=== PATIENT | female | born 1935 | race Caucasian/White ===

== ENCOUNTER → 2016-10-02 | Outpatient (CLI) | payer OTHER ==
[~2016-10-02] MED LIST: ADVIN25/60 INH; AMIO200T4 PO; ANT25 PO; APIX1TAB3 PO; ATOR10TA88 PO; CALC500C70 PO; CMBIN INH; FERRTAB18 PO; FSMD/70 PO; IPRA1AER2 INH; MAGN400T6 PO; PROM12.57 PO; WARF4TAB44 PO
[2016-10-02 13:21] LABS: URINE APPEARANCE CLEAR (CLEAR); URINE BILIRUBIN NEG (NEG); URINE COLOR YELLOW; URINE NITRITE NEG (NEG); URINE SPECIFIC GRAVITY 1.008 (1.000-1.030); UROBILINOGEN NEG (NEG)
[2016-10-02 13:30] LABS: MANUAL MICROSCOPIC REQUIRED? NO; REVIEW REQ? NO
[2016-10-02 13:32] LABS: HEMATOCRIT 29.9 % (37-47); MEAN CELL VOLUME 93.4 fL (80-100); MEAN CORPUSCULAR HGB CONC 32.1 g/dl (32-36); MEAN PLATELET VOLUME 10.2 fL (7.4-10.4); PLATELET COUNT 196 K/uL (130-400); WHITE BLOOD COUNT 6.41 K/uL (4.8-10.8)
[2016-10-02 13:48] LABS: BLOOD UREA NITROGEN 39 mg/dl (7-18); CALCIUM 8.5 mg/dl (8.5-10.1); CARBON DIOXIDE 26 mmol/L (21-32); CHLORIDE 108 mmol/L (98-107); GLUCOSE 92 mg/dl (70-99); POTASSIUM 4.5 mmol/L (3.5-5.1); SODIUM 143 mmol/L (136-145)
[2016-10-02 13:52] LABS: URINE PROTIEN/CREAT RATIO 0.2 (0-0.2); URINE TOTAL PROTEIN 16.1 mg/dl (0-11.9)
[2016-10-02 13:54] LABS: FERRITIN 33.6 ng/ml (8.0-388.0); PHOSPHORUS 3.4 mg/dl (2.5-4.9); TOTAL IRON BINDING CAPACITY 314 mcg/dl (250-450)
== END | disposition home or self-care (01) ==
LOC: C.LABMFLN 07:58
PROVIDERS: ATTEND Internal Medicine Nephrology
DX: D64.9 Anemia, unspecified (principal); N18.3 Chronic kidney disease, stage 3 (moderate)

== ENCOUNTER 2016-12-04 13:03 | Emergency (ER) | payer OTHER ==
[~2016-12-04] VITALS: Ht 160 cm; Wt 61.0 kg
[~2016-12-04 13:03] MED LIST changes: -ANT25 PO; -APIX1TAB3 PO; +ATOR10TA82 PO; -ATOR10TA88 PO; -FERRTAB18 PO; -IPRA1AER2 INH; -PROM12.57 PO
[2016-12-04 13:11] VITALS: TEMP 36.3; Ht 160 cm; Wt 61.0 kg
[2016-12-04] MEDS ORDERED: MECLIZINE HCL 25 MG TAB PO STA (13:28)
[2016-12-04] MEDS ORDERED: ONDANSETRON INJ 2 MG/ML 2 ML VIAL IV STA (13:28)
[2016-12-04] MEDS ORDERED: SODIUM CHLORIDE 0.9% 1000ML 500 ML IV STA (13:28)
[2016-12-04] MEDS ORDERED: SODIUM CHLORIDE 0.9% 1000ML 1,000 ML IV STA (13:28)
--- NOTE | 2016-12-04 13:35 | EMERGENCY ROOM VISIT NOTE ---
History Report prepared by Anders: Kym Jo Under the Supervision of: Dr. Pardeep Baron M.D. First contact with patient: 13:20 Chief Complaint: DIZZY Stated Complaint: DIZZY,VOMITING,A-FIB, POSSIBLE VERTIGO Nursing Triage Summary: dizziness and vomitting since 1030 am today gets worse with movement History of Present Illness The patient is an 81 year old female who presents to the Emergency Room with complaints of persistent dizziness that began this morning around 1030 (3 hours ago). The patient states that she woke up feeling fine this morning and then when she was getting ready to get in the car she became dizzy. She describes her dizziness as a room spinning sensation. The patient additionally associates nausea and vomiting with her symptoms today. The patient denies any history of vertigo. She notes a history of atrial fibrillation. The patient states that she has been feeling fine over the past few days. She denies any history of a stroke. The patient notes that her blood pressure is elevated today. She denies any chest pain, shortness of breath, cough, fever, congestion , ear pain, urinary symptoms, or weakness. Her symptoms are worse with movement and better when she is still. Source of History: patient Onset: 1030 this morning Position: other (global) Quality: other (dizziness) Timing: other (persistent) Associated Symptoms: + nausea, + vomiting, No SOB, No chest pain, No cough, No fevers, No urinary symptoms, No weakness Review of Systems See HPI for pertinent positives & negatives. A total of 10 systems reviewed and were otherwise negative. Past Medical & Surgical Medical Problems: (1) Atrial fibrillation (2) Bronchitis (3) Heart disease (4) Hypertension (5) Kidney disease (6) Pneumonia Family History Cancer Diabetes mellitus FH: heart disease Hypertension Social History Smokeless Tobacco Use: No Alcohol Use: none Marital Status: Housing Status: lives with family Occupation Status: employed Current/Historical Medications Scheduled Amiodarone Hcl (Cordarone), 200 MG PO DAILY Atorvastatin (Lipitor), 10 MG PO DAILY Calcium/Vitamin D (Os-Gareth 500 Plus D), 1 TAB PO BID Fluticasone Prop/Salmeterol (Advair Diskus 250/50 60 Dose), 1 PUFF INH BID Ipratropium-Albuterol (Combivent Respimat), 1 PUFFS INH QID Scheduled PRN Meclizine HCl (Meclizine HCl), 12.5 MG PO Q6 PRN for Dizziness or Vertigo Promethazine (Phenergan ), 1 TABS PO Q6 PRN for Nausea Allergies Coded Allergies: Penicillins (Verified Allergy, Intermediate, HIVES, 12/04/16) Lisinopril (Unverified Allergy, Unknown, ., 12/04/16) Physical Exam Vital Signs Date Time Temp Pulse Resp B/P Pulse Ox O2 Delivery O2 Flow Rate FiO2 12/04/16 16:32 64 18 164/80 95 12/04/16 14:32 68 196/81 72 188/86 72 185/85 12/04/16 13:54 68 12/04/16 13:11 36.3 68 18 226/79 98 Room Air Physical Exam GENERAL: Patient is in no acute distress. HEENT: No acute trauma, normocephalic atraumatic, mucous membranes moist, no nasal congestion, no scleral icterus, pupils are equal and reactive to light, no nystagmus. NECK: No stridor, no adenopathy, no meningismus, trachea is midline. LUNGS: Clear to auscultation bilaterally, no wheeze, no rhonchi, breath sounds equal. HEART: 2/6 systolic murmur with a regular rate and rhythm ABDOMEN: Soft, nontender, bowel sounds positive, no hernias, no peritonitis. EXTREMITIES: No cyanosis or edema, full range of motion of all the joints without pain or difficulty, no signs for acute trauma. NEUROLOGIC: Oriented x 3, no acute motor or sensory deficits, no focal weakness , no speech slur, pronator drift or cerebellar dysfunction. SKIN: No rash, no jaundice, no diaphoresis. Medical Decision & Procedures ER Provider Diagnostic Interpretation: Orthostatic vital signs are negative. CT results as stated below per my review and radiologist interpretation: HEAD CT NONCONTRAST CT DOSE: 537.48 mGy.cm HISTORY: EVALUATE ALTERED MENTAL STATUS/WEAKNESS TECHNIQUE: Multiaxial CT images of the head were performed without the use of intravenous contrast. Automated exposure control was utilized for this study. Comparison: None. Findings: The paranasal sinuses and mastoid air cells are clear. The calvarium and skull base are intact. Mild atrophic changes within the brain. 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 There is no hematoma, midline shift, or acute infarct. Prominence of the retrocerebellar extra-axial space. This measures up to 3 cm in thickness. This demonstrates CSF density and could represent an arachnoid cyst versus a sade cisterna magna. Impression: 1. No acute intracranial abnormality. 2. Prominence of the retrocerebellar extra-axial space measuring up to 3 cm in thickness. This may represent a sade cisterna magna versus an arachnoid cyst. Electronically signed by: Felipe Felder M.D. 12/04/2016 2:10 PM Dictated Date/Time: 12/04/2016 2:06 PM Laboratory Results 12/04/16 13:45 Red Blood Count 3.69, Mean Corpuscular Volume 90.5, Mean Corpuscular Hemoglobin 28.2, Mean Corpuscular Hemoglobin Concent 31.1, Mean Platelet Volume 9.4, Neutrophils (%) (Auto) 86.4, Lymphocytes (%) (Auto) 7.2, Monocytes (%) (Auto) 5.4, Eosinophils (%) (Auto) 0.6, Basophils (%) (Auto) 0.3, Neutrophils # (Auto) 6.81, Lymphocytes # (Auto) 0.57, Monocytes # (Auto) 0.43, Eosinophils # (Auto) 0.05, Basophils # (Auto) 0.02 12/04/16 13:45 Test 12/04/16 13:45 12/04/16 14:35 White Blood Count 7.89 K/uL (4.8-10.8) Red Blood Count 3.69 M/uL (4.2-5.4) Hemoglobin 10.4 g/dL (12.0-16.0) Hematocrit 33.4 % (37-47) Mean Corpuscular Volume 90.5 fL (80-100) Mean Corpuscular Hemoglobin 28.2 pg (25-34) Mean Corpuscular Hemoglobin Concent 31.1 g/dl (32-36) Platelet Count 241 K/uL (130-400) Mean Platelet Volume 9.4 fL (7.4-10.4) Neutrophils (%) (Auto) 86.4 % Lymphocytes (%) (Auto) 7.2 % Monocytes (%) (Auto) 5.4 % Eosinophils (%) (Auto) 0.6 % Basophils (%) (Auto) 0.3 % Neutrophils # (Auto) 6.81 K/uL (1.4-6.5) Lymphocytes # (Auto) 0.57 K/uL (1.2-3.4) Monocytes # (Auto) 0.43 K/uL (0.11-0.59) Eosinophils # (Auto) 0.05 K/uL (0-0.5) Basophils # (Auto) 0.02 K/uL (0-0.2) RDW Standard Deviation 54.2 fL (36.4-46.3) RDW Coefficient of Variation 16.2 % (11.5-14.5) Immature Granulocyte % (Auto) 0.1 % Immature Granulocyte # (Auto) 0.01 K/uL (0.00-0.02) Anion Gap 8.0 mmol/L (3-11) Est Creatinine Clear Calc Drug Dose 25.2 ml/min Estimated GFR () 40.2 Estimated GFR (Non- 34.7 BUN/Creatinine Ratio 24.5 (10-20) Calcium Level 9.2 mg/dl (8.5-10.1) Magnesium Level 2.3 mg/dl (1.8-2.4) Total Bilirubin 0.4 mg/dl (0.2-1) Aspartate Amino Transf (AST/SGOT) 23 U/L (15-37) Alanine Aminotransferase (ALT/SGPT) 31 U/L (12-78) Alkaline Phosphatase 96 U/L (45-117) Troponin I < 0.015 ng/ml (0-0.045) Total Protein 7.2 gm/dl (6.4-8.2) Albumin 3.6 gm/dl (3.4-5.0) Globulin 3.6 gm/dl (2.5-4.0) Albumin/Globulin Ratio 1.0 (0.9-2) Thyroid Stimulating Hormone (TSH) 3.500 uIu/ml (0.300-4.500) Urine Color YELLOW Urine Appearance CLEAR (CLEAR) Urine pH 8.0 (4.5-7.5) Urine Specific [place] 1.012 (1.000-1.030) Urine Protein 1+ (NEG) Urine Glucose (UA) NEG (NEG) Urine Ketones NEG (NEG) Urine Occult Blood 1+ (NEG) Urine Nitrite NEG (NEG) Urine Bilirubin NEG (NEG) Urine Urobilinogen NEG (NEG) Urine Leukocyte Esterase NEG (NEG) Urine WBC (Auto) 1-5 /hpf (0-5) Urine RBC (Auto) 5-10 /hpf (0-4) Urine Hyaline Casts (Auto) 1-5 /lpf (0-5) Urine Epithelial Cells (Auto) >30 /lpf (0-5) Urine Bacteria (Auto) NEG (NEG) Urine Renal Epithelial Cells /lpf (0-5) Laboratory results reviewed by me. Medications Administered Medications (Trade) Dose Ordered Sig/Shai Route Start Time Stop Time Status Last Admin Dose Admin Sodium Chloride (Nss 1000ml) 500 ml @ 999 mls/hr Q31M STAT IV 12/04/16 13:28 12/04/16 13:58 DC 12/04/16 13:28 999 MLS/HR Ondansetron HCl (Zofran Inj) 4 mg NOW STAT IV 12/04/16 13:28 12/04/16 13:31 DC 12/04/16 13:53 4 MG Meclizine HCl (Antivert Tab) 25 mg NOW STAT PO 12/04/16 13:28 12/04/16 13:31 DC 12/04/16 13:53 25 MG ECG Indication: other (dizziness) Rate (beats per minute): 69 Rhythm: sinus rhythm Findings: 1st degree AV block, no acute ischemic change, no ectopy, other (LVH is present) ED Course 1320: The patient was evaluated in room C8. A complete history and physical exam was performed. 1328: Ordered Antivert Tab 25 mg PO, Sodium Chloride 1000 ml @ 125 mls/hr IV, Zofran Inj 4 mg IV, Sodium Chloride 500 ml @ 999 mls/hr IV. 1522: I reevaluated the patient and she is feeling better. She is going to have an ambulation trial. 1556: I reevaluated the patient and her ambulation trial went well. I discussed all the exam findings with her and I discussed the treatment plan. She verbalized complete understanding and agreement. She is ready to go home. Medical Decision The patient is an 81 year old female who presents to the ED with complaints of dizziness. Differential diagnoses considered include vertigo, dehydration, UTI , electrolyte imbalance, anemia, dysrhythmia, stroke. There is no leukocytosis. A mild anemia was present but this is baseline looking back at previous testing. No significant electrolyte abnormality, some dehydration was suggested by renal panel testing. There was no hepatitis. The patient appeared to be in a euthyroid state. EKG showed a sinus rhythm with a first-degree AV block. There was no evidence for dysrhythmia or acute ischemia. Cardiac enzyme testing 1 is not suggestive of acute cardiac injury. Brain CT shows some potential older small strokes, no acute stroke, no acute bleed or mass effect. Orthostatic vital signs were negative. Urinalysis does not show infection. The patient received IV saline, IV Zofran and oral meclizine. She feels markedly improved. On her exam, she did not have any focal neurologic findings. The patient likely does have vertigo. As she has improved with medications, I believe she can be discharged. She was encouraged to return if worsening or not continuing to improve. She will see her doctor later this week. Impression Primary Impression: Dizziness Scribe Attestation The scribe's documentation has been prepared under my direction and personally reviewed by me in its entirety. I confirm that the note above accurately reflects all work, treatment, procedures, and medical decision making performed by me. Departure Information Dispostion Home / Self-Care Prescriptions Promethazine (Phenergan ) 12.5 Mg Tab 1 TABS PO Q6 Y for Nausea, #10 TAB Prov: Pardeep Baron M.D. 12/04/16 Meclizine HCl (Meclizine HCl) 25 Mg Tab 12.5 MG PO Q6 Y for Dizziness or Vertigo, #10 TAB Prov: Pardeep Baron M.D. 12/04/16 Referrals Denisse Calle (PCP) Forms HOME CARE DOCUMENTATION FORM, IMPORTANT VISIT INFORMATION Patient Instructions My [facility] Additional Instructions see your doctor this week for a recheck use phenergan 1 tab every 6 hours for nausea use meclizine 1/2 tab every 6 hours for dizziness rest stay well hydrated return if worsening as we discussed
[2016-12-04] MEDS ORDERED: IPRA1AER2 INH (13:46)
[2016-12-04 14:12] LABS: BASO % 0.3 %; BASO ABS # 0.02 K/uL (0-0.2); COMPLETE YES; EOS % 0.6 %; HEMATOCRIT 33.4 % (37-47); IG% 0.1 %; LYMPH % 7.2 %; LYMPH ABS # 0.57 K/uL (1.2-3.4); MEAN CELL VOLUME 90.5 fL (80-100); MEAN CORPUSCULAR HEMOGLOBIN 28.2 pg (25-34); MEAN CORPUSCULAR HGB CONC 31.1 g/dl (32-36); MEAN PLATELET VOLUME 9.4 fL (7.4-10.4); MONO % 5.4 %; NEUT % 86.4 %; PLATELET COUNT 241 K/uL (130-400); RED BLOOD COUNT 3.69 M/uL (4.2-5.4); WHITE BLOOD COUNT 7.89 K/uL (4.8-10.8)
--- NOTE | 2016-12-04 14:12 | DIAGNOSTIC IMAGING REPORT ---
HEAD CT NONCONTRAST CT DOSE: 537.48 mGy.cm HISTORY: EVALUATE ALTERED MENTAL STATUS/WEAKNESS TECHNIQUE: Multiaxial CT images of the head were performed without the use of intravenous contrast. Automated exposure control was utilized for this study. Comparison: None. Findings: The paranasal sinuses and mastoid air cells are clear. The calvarium and skull base are intact. Mild atrophic changes within the brain. 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 There is no hematoma, midline shift, or acute infarct. Prominence of the retrocerebellar extra-axial space. This measures up to 3 cm in thickness. This demonstrates CSF density and could represent an arachnoid cyst versus a sade cisterna magna. Impression: 1. No acute intracranial abnormality. 2. Prominence of the retrocerebellar extra-axial space measuring up to 3 cm in thickness. This may represent a sade cisterna magna versus an arachnoid cyst. Electronically signed by: Felipe Felder M.D. 12/04/2016 2:10 PM Dictated Date/Time: 12/04/2016 2:06 PM
[2016-12-04 14:53] LABS: URINE APPEARANCE CLEAR (CLEAR); URINE BILIRUBIN NEG (NEG); URINE COLOR YELLOW; URINE EPITHELIAL CELL AUTO >30 /lpf (0-5); URINE NITRITE NEG (NEG); URINE SPECIFIC GRAVITY 1.012 (1.000-1.030); UROBILINOGEN NEG (NEG); ZZUR CULT IF INDIC CLEAN CATCH NO
[2016-12-04 14:54] LABS: ALKALINE PHOSPHATASE 96 U/L (45-117); ALT/SGPT 31 U/L (12-78); AST/SGOT 23 U/L (15-37); BLOOD UREA NITROGEN 34 mg/dl (7-18); BUN/CREATININE RATIO 24.5 (10-20); CALCIUM 9.2 mg/dl (8.5-10.1); CARBON DIOXIDE 28 mmol/L (21-32); CHLORIDE 106 mmol/L (98-107); GLUCOSE 134 mg/dl (70-99); MAGNESIUM 2.3 mg/dl (1.8-2.4); POTASSIUM 4.1 mmol/L (3.5-5.1); SODIUM 142 mmol/L (136-145)
[2016-12-04 15:10] LABS: MANUAL MICROSCOPIC REQUIRED? NO; REVIEW REQ? YES; SULFASALICYLIC ACID POS (NEG)
[2016-12-04] MEDS ORDERED: ANT25 PO (16:02)
[2016-12-04] MEDS ORDERED: PROM12.57 PO (16:02)
[2016-12-04 16:32] VITALS: BP 164/80; PULSE 64; O2SAT 95
[2016-12-31] MEDS ORDERED: AMIO200T4 PO (15:14)
[2016-12-31] MEDS ORDERED: APIX1TAB3 PO (15:14)
[2016-12-31] MEDS ORDERED: FERRTAB18 PO (15:14)
[2016-12-31] MEDS ORDERED: IPRA1AER2 INH (15:15)
== END 2016-12-04 16:35 | disposition home or self-care (01) ==
LOC: C.EDB 13:04 → C.EDC 16:35
DX: R42 Dizziness and giddiness (principal); I48.91 Unspecified atrial fibrillation; I51.9 Heart disease, unspecified; I10 Essential (primary) hypertension; N28.9 Disorder of kidney and ureter, unspecified; Z87.01 Personal history of pneumonia (recurrent); Z80.9 Family history of malignant neoplasm, unspecified; Z83.3 Family history of diabetes mellitus; Z82.49 Family history of ischemic heart disease and other diseases of the circulatory system; Z79.899 Other long term (current) drug therapy

== ENCOUNTER → 2017-01-07 | Day surgery (SDC) | payer OTHER ==
[2016-12-31 15:16] VITALS: Ht 161.3 cm; Wt 61.4 kg
[~2017-01-07] VITALS: Ht 161.3 cm; Wt 61.4 kg
[~2017-01-07] MED LIST changes: +APIX1TAB3 PO; -CMBIN INH; +FERRTAB18 PO; -FSMD/70 PO; +IPRA1AER2 INH; +LIDOCAINE HCL 2% 2 ML VIAL (20MG/ML) ONE; -MAGN400T6 PO; +PROPOFOL IV EMULSION 10 MG/ML 20 ML VIAL IV ONE; -WARF4TAB44 PO
--- NOTE | 2017-01-07 13:02 | Endo History and Physical ---
History & Physical Date of Service: January 07, 2017. Chief Complaint: Iron Deficiency anemia Referring Physician: Denisse Calle History of Present Illness For EGD and colonoscopy Past Surgical History Hx Cardiac Surgery: No Hx Internal Defibrillator: No Hx Pacemaker: No Hx Abdominal Surgery: No Hx of Implantable Prosthesis: No Hx Post-Op Nausea and Vomiting: No Hx Cancer Surgery: No Hx Thoracic Surgery: No Hx Orthopedic: Yes (LT/RT BUNIONECTOMY, LT/RT SHOULDER SURGERY) Hx Urinary Tract Surgery: No Family History Colon CA Social History Smoking Status: Never Smoker Hx Substance Use: No Hx Alcohol Use: No Allergies Coded Allergies: Penicillins (Verified Allergy, Intermediate, HIVES, 12/31/16) Lisinopril (Unverified Allergy, Unknown, FACIAL SWELLING AND RT UPPER THIGH PAIN, 12/31/16) Current Medications Reported Home Medications Medications Dose Route/Sig Max Daily Dose Days Date Category Combivent Respimat (Ipratropium-Albuterol) 1 Aer Aer 1 Puffs INH QID 12/31/16 Reported Cordarone (Amiodarone Hcl) 200 Mg Tab 200 Mg PO LUNCH 12/31/16 Reported Vitron-C (Iron-Vitamin C) 1 Tab Tab 1 Tab PO LUNCH 12/31/16 Reported Eliquis (Apixaban) 5 Mg Tab 10 Mg PO BID 12/31/16 Reported Os-Gareth 500 Plus D (Calcium/Vitamin D) Tab 1 Tab PO BID 10/16/12 Reported Lipitor (Atorvastatin Calcium) 10 Mg Tab 10 Mg PO QPM 10/16/12 Reported Advair Diskus 250/50 60 Dose (Fluticasone Prop/Salmeterol) 1 Ea Aerp 1 Puff INH BID 10/16/12 Reported Vital Signs Weight (Kilograms): 61.36 Height (Feet): 5 Height (Inches): 3.5 Physical Exam General Appearance: + thin Respiratory/Chest: Respiratory effort: no dyspnea Cardiovascular: Heart Auscultation: RRR Abdomen: Inspection & Palpation: soft (Anemia for EGD and colonoscopy)
--- NOTE | 2017-01-07 13:35 | Discharge Instructions ---
Endoscopy Patient Instructions Date / Procedure(s) Performed January 07, 2017. Colonoscopy, EGD Allergy Information Coded Allergies: Penicillins (Verified Allergy, Intermediate, HIVES, 12/31/16) Lisinopril (Unverified Allergy, Unknown, FACIAL SWELLING AND RT UPPER THIGH PAIN, 12/31/16) Discharge Date / Findings January 07, 2017. Normal EGD, Ascending colon mass, sigmoid polyp Medication Instructions Stopped Medication(s): Eliquis Restart Stopped Medication(s): resume meds Reported Home Medications Medications Dose Route/Sig Max Daily Dose Days Date Category Combivent Respimat (Ipratropium-Albuterol) 1 Aer Aer 1 Puffs INH QID 12/31/16 Reported Cordarone (Amiodarone Hcl) 200 Mg Tab 200 Mg PO LUNCH 12/31/16 Reported Vitron-C (Iron-Vitamin C) 1 Tab Tab 1 Tab PO LUNCH 12/31/16 Reported Eliquis (Apixaban) 5 Mg Tab 10 Mg PO BID 12/31/16 Reported Os-Gareth 500 Plus D (Calcium/Vitamin D) Tab 1 Tab PO BID 10/16/12 Reported Lipitor (Atorvastatin Calcium) 10 Mg Tab 10 Mg PO QPM 10/16/12 Reported Advair Diskus 250/50 60 Dose (Fluticasone Prop/Salmeterol) 1 Ea Aerp 1 Puff INH BID 10/16/12 Reported Provider Instructions Activity Restrictions - No exercising or heavy lifting for 24 hours. - Do not drink alcohol the day of the procedure. - Do not drive a car or operate machinery until the day after the procedure. - Do not make any important decisions or sign important papers in 24 hours after the procedure. Following Day: - Return to full activity which may include returning to work/school. Diet Start your diet with liquids and light foods (jello, soup, juice, toast). Then eat your usual diet if not nauseated. Treatment For Common After Affects For mild abdominal pain, bloating, or excessive gas: - Rest - Eat lightly - Lie on right side Follow-Up Information Follow-up with Denisse Calle as scheduled Anesthesia Information What You Should Know You have had a procedure that required some medicine to reduce anxiety and discomfort. This treatment is called moderate sedation. After receiving the treatment, you may be sleepy, but you will be able to breathe on your own. The effects of the treatment may last for several hours. Follow these instructions along with Activity/Diet recommendations noted above: * Do NOT do anything where dizziness or clumsiness would be dangerous. * Rest quietly at home today, then you can be up and about tomorrow. * Have a responsible person stay with you the rest of today. * You may have had an I.V. today. If so, you may take the dressing off later today. Recommendations Call your doctor if: * Trouble breathing * Continuous vomiting for more than 24 hours * Temperature above 101 degrees * Severe abdominal pain or bloating * Pain not relieved by pain medicine ordered * There is increased drainage or redness from any incision * A large amount of rectal bleeding greater than 2-3 tablespoons. (If you had a polyp/s removed or have hemorrhoids, a small amount of blood - from the rectum is to be expected.) * You have any unanswered questions or concerns. IN THE EVENT OF A SERIOUS EMERGENCY, GO TO THE NEAREST EMERGENCY ROOM Your discharge instructions were prepared by provider Matthew Vogel. Patient Instructions Signature Page Sofiya Mercado Patient (or Guardian) Signature/Date: I have read and understand the instructions given to me by my caregivers. Caregiver/RN/Doctor Signature/Date: The above-named patient and/or guardian has received patient instructions on this date. + Original Patient Signature Page (only) stays with chart. Please make copy for patient.
--- NOTE | 2017-01-07 13:38 | GI REPORT ---
Procedure Date: 01/07/2017 1:07 PM Procedure: Upper GI endoscopy Indications: Iron deficiency anemia Medicines: Propofol total dose 160 mg IV, Lidocaine 40 mg IV Complications: No immediate complications. Estimated Blood Loss: Estimated blood loss was minimal. Procedure: Pre-Anesthesia Assessment: - Prior to the procedure, a History and Physical was performed, and patient medications, allergies and sensitivities were reviewed. The patient's tolerance of previous anesthesia was reviewed. - The risks and benefits of the procedure and the sedation options and risks were discussed with the patient. All questions were answered and informed consent was obtained. After obtaining informed consent, the endoscope was passed under direct vision. Throughout the procedure, the patient's blood pressure, pulse, and oxygen saturations were monitored continuously. The scope was introduced through the mouth, and advanced to the second part of duodenum. The upper GI endoscopy was accomplished without difficulty. The patient tolerated the procedure well. Findings: The examined esophagus was normal. The entire examined stomach was normal. The 2nd part of the duodenum was normal. Biopsies were taken with a cold forceps for histology. Estimated blood loss was minimal. Impression: - Normal esophagus. - Normal stomach. - Normal 2nd part of the duodenum. Biopsied. Recommendation: - Discharge patient to home (ambulatory). - Continue present medications. - Await pathology results. - Return to primary care physician PRN. Matthew Vogel M.D. Matthew Vogel MD 01/07/2017 1:38:41 PM This report has been signed electronically. Note Initiated On: 01/07/2017 1:07 PM I attest to the content of the Intraoperative Record and orders documented therein, exceptions below
--- NOTE | 2017-01-07 13:41 | GI REPORT ---
Procedure Date: 01/07/2017 1:12 PM Procedure: Colonoscopy Indications: Iron deficiency anemia Medicines: Propofol total dose 160 mg IV, Lidocaine 40 mg IV Complications: No immediate complications. Estimated Blood Loss: Estimated blood loss was minimal. Procedure: Pre-Anesthesia Assessment: - Prior to the procedure, a History and Physical was performed, and patient medications, allergies and sensitivities were reviewed. The patient's tolerance of previous anesthesia was reviewed. - The risks and benefits of the procedure and the sedation options and risks were discussed with the patient. All questions were answered and informed consent was obtained. After I obtained informed consent, the scope was passed under direct vision. Throughout the procedure, the patient's blood pressure, pulse, and oxygen saturations were monitored continuously. The scope was introduced through the anus and advanced to the cecum, identified by appendiceal orifice and ileocecal valve. The patient tolerated the procedure well. The colonoscopy was somewhat difficult due to significant looping. Successful completion of the procedure was aided by applying abdominal pressure. The quality of the bowel preparation was excellent. Findings: A fungating non-obstructing large mass was found in the proximal ascending colon. The mass was partially circumferential (involving one-half of the lumen circumference). No bleeding was present. Mucosa was biopsied with a cold forceps for histology. Estimated blood loss was minimal. A 5 mm polyp was found in the sigmoid colon. The polyp was sessile. The polyp was removed with a hot snare. Resection and retrieval were complete. Estimated blood loss: none. 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 Biopsied. - One 5 mm polyp in the sigmoid colon, removed with a hot snare. Resected and retrieved. Recommendation: - Discharge patient to home (ambulatory). - Continue present medications. - Await pathology results. - Refer to a colo-rectal surgeon at appointment to be scheduled. Matthew Vogel M.D. Matthew Vogel MD 01/07/2017 1:42:11 PM This report has been signed electronically. Note Initiated On: 01/07/2017 1:12 PM I attest to the content of the Intraoperative Record and orders documented therein, exceptions below
--- NOTE | 2017-01-07 14:06 | Anesthesiology Progress Note ---
Anesthesia Post Op Note Date & Time January 07, 2017 at 14:06 Vital Signs Pain Intensity: 0 Vital Signs Past 12 Hours Date Time Temp Pulse Resp B/P Pulse Ox O2 Delivery O2 Flow Rate FiO2 01/07/17 13:59 65 20 163/64 96 Room Air 01/07/17 13:40 65 12 117/66 96 Room Air 01/07/17 12:59 36.5 69 20 177/74 94 Room Air Notes Mental Status: alert / awake / arousable, participated in evaluation Pt Amnestic to Procedure: Yes Nausea / Vomiting: adequately controlled Pain: adequately controlled Airway Patency, RR, SpO2: stable & adequate BP & HR: stable & adequate Hydration State: stable & adequate Anesthetic Complications: no major complications apparent
[2017-01-07 14:11] VITALS: BP 175/64; PULSE 66; O2SAT 95
== END | disposition home or self-care (01) ==
LOC: C.GI 12:18
PROVIDERS: ATTEND Internal Medicine Gastroenterology
DX: D50.9 Iron deficiency anemia, unspecified (principal); D12.2 Benign neoplasm of ascending colon; D12.5 Benign neoplasm of sigmoid colon; Z88.0 Allergy status to penicillin; J44.9 Chronic obstructive pulmonary disease, unspecified; I48.91 Unspecified atrial fibrillation; Z98.890 Other specified postprocedural states; Z80.0 Family history of malignant neoplasm of digestive organs; Z68.23 Body mass index [BMI] 23.0-23.9, adult; G47.33 Obstructive sleep apnea (adult) (pediatric); N18.9 Chronic kidney disease, unspecified

== ENCOUNTER → 2017-04-04 | Outpatient (CLI) | payer OTHER ==
[~2017-04-04] MED LIST changes: -ATOR10TA82 PO; +ATOR10TA88 PO; -LIDOCAINE HCL 2% 2 ML VIAL (20MG/ML) ONE; -PROPOFOL IV EMULSION 10 MG/ML 20 ML VIAL IV ONE
[2017-04-04 18:00] LABS: BLOOD UREA NITROGEN 29 mg/dl (7-18); BUN/CREATININE RATIO 16.2 (10-20); CALCIUM 8.2 mg/dl (8.5-10.1); CARBON DIOXIDE 28 mmol/L (21-32); CHLORIDE 112 mmol/L (98-107); GLUCOSE 86 mg/dl (70-99); POTASSIUM 4.7 mmol/L (3.5-5.1); SODIUM 145 mmol/L (136-145)
[2017-04-04 18:10] LABS: PHOSPHORUS 3.7 mg/dl (2.5-4.9)
== END | disposition home or self-care (01) ==
LOC: C.LABMFLN 13:05
PROVIDERS: ATTEND Internal Medicine Nephrology
DX: Z79.899 Other long term (current) drug therapy (principal); N18.3 Chronic kidney disease, stage 3 (moderate)

== ENCOUNTER → 2017-07-12 | Outpatient (CLI) | payer OTHER ==
[~2017-07-12] MED LIST changes: +ATOR10TA82 PO; -ATOR10TA88 PO
--- NOTE | 2017-07-24 15:17 | MAMMOGRAPHY REPORT ---
BILATERAL DIGITAL SCREENING MAMMOGRAM TOMOSYNTHESIS WITH CAD: 07/12/2017 CLINICAL HISTORY: Routine screening. Patient has no complaints. TECHNIQUE: Breast tomosynthesis in addition to standard 2D mammography was performed. Current study was also evaluated with a Computer Aided Detection (CAD) system. Bilateral CC and MLO 2-D and tomosy nthesis images were obtained. COMPARISON: Comparison is made to exams dated: 06/03/2015 mammogram, 03/26/2014 mammogram, 03/25/2013 ma mmogram, 03/25/2013 mammogram, and 02/07/2012 mammogram. BREAST COMPOSITION: The tissue of both breasts is heterogeneously dense, which may obscure small mas ses. FINDINGS: No suspicious masses, calcifications, or areas of architectural distortion are noted in ei ther breast. There has been no significant interval change compared to prior exams. Scattered bilate ral benign-appearing calcifications, predominantly vascular calcifications, are again noted. Asymmet ry in the right superior posterior breast on the MLO view is stable compared to multiple prior exams including the 2011 and 2012 exams, and is considered benign given long-term stability. Note that the patient returned on 07/24/2017 for repeat bilateral MLO 2-D and tomosynthesis images to better includ e posterior tissue and pectoralis muscles. IMPRESSION: ACR BI-RADS CATEGORY 2: BENIGN There is no mammographic evidence of malignancy. A 1 year screening mammogram is recommended. The pa tient will receive written notification of the results. The patient was also verbally notified of th e results when she returned for repeat MLO views on 07/24/2017. Approximately 10% of breast cancers are not detected with mammography. A negative mammographic report should not delay biopsy if a clinically suggestive mass is present. Lida Jackson M.D. ah/:07/24/2017 11:24:43 Crop Nutrition Scientist: Audrey GONZALEZ(Yancy)(M), [facility] letter sent: Normal 1/2 BI-RADS Code: ACR BI-RADS Category 2: Benign
== END | disposition home or self-care (01) ==
LOC: C.MAMM 13:18
PROVIDERS: ATTEND Nurse Practitioner
DX: Z12.31 Encounter for screening mammogram for malignant neoplasm of breast (principal)

== ENCOUNTER → 2017-09-20 | Outpatient (CLI) | payer OTHER ==
[2017-09-20 13:04] LABS: ALBUMIN 3.2 gm/dl (3.4-5.0); BLOOD UREA NITROGEN 41 mg/dl (7-18); CALCIUM 9.9 mg/dl (8.5-10.1); CARBON DIOXIDE 28 mmol/L (21-32); CREATININE 1.65 mg/dl (0.60-1.20); GLUCOSE 100 mg/dl (70-99); PHOSPHORUS 4.1 mg/dl (2.5-4.9); POTASSIUM 4.6 mmol/L (3.5-5.1); SODIUM 142 mmol/L (136-145)
== END | disposition home or self-care (01) ==
LOC: C.LABMFLN 08:45
PROVIDERS: ATTEND Internal Medicine Nephrology
DX: N18.3 Chronic kidney disease, stage 3 (moderate) (principal)

== ENCOUNTER → 2017-09-27 | Outpatient (CLI) | payer OTHER | END | disposition home or self-care (01) | LOC: C.LABMFLN 15:00 | PROVIDERS: ATTEND Internal Medicine Nephrology | DX: R31.29 Other microscopic hematuria (principal) ==

== ENCOUNTER → 2017-10-01 | Outpatient (CLI) | payer OTHER ==
--- NOTE | 2017-10-01 14:03 | DIAGNOSTIC IMAGING REPORT ---
(RENAL)RETROPERITON COMP HISTORY: 82 years-old Female R31.29 Hematuria acute hematuria COMPARISON: None available TECHNIQUE: Multiple real-time sonogram images of the kidneys and urinary bladder were obtained assessing grayscale appearance and color flow FINDINGS: The right kidney measures 9.2 x 4.7 x 4.9 cm. There is mild cortical thinning with increased echogenicity of the renal parenchyma. Multiple renal sinus cysts are noted, largest of which measures up to 2.0 cm. No suspicious mass lesions, renal calculi or hydronephrosis of the right kidney. The left kidney measures 9.5 x 4.9 x 4.4 cm. There is mild cortical thinning with increased echogenicity of the renal parenchyma. Multiple renal sinus cysts are noted, largest of which measures up to 1.6 cm. No suspicious mass lesions, renal calculi or hydronephrosis of the left kidney. Mild amount of dependent debris is noted within the urinary bladder lumen. IMPRESSION: 1. Increased echogenicity with mild cortical thinning of the bilateral kidneys suggests chronic medical renal disease. 2. No definite renal calculi or hydronephrosis. 3. Bilateral renal sinus cysts. 4. Mild debris within urinary bladder lumen. Correlate with urinalysis. The above report was generated using voice recognition software. It may contain grammatical, syntax or spelling errors. Electronically signed by: Yuval Ty M.D. 10/01/2017 2:02 PM Dictated Date/Time: 10/01/2017 2:00 PM
== END | disposition home or self-care (01) ==
LOC: C.ULTR 12:32
PROVIDERS: ATTEND Internal Medicine Nephrology
DX: R31.29 Other microscopic hematuria (principal); N28.1 Cyst of kidney, acquired

== ENCOUNTER → 2017-11-05 | Outpatient (CLI) | payer OTHER ==
[2017-11-05 12:54] LABS: HEMATOCRIT 36.6 % (37-47); HEMOGLOBIN 11.8 g/dL (12.0-16.0); MEAN CELL VOLUME 97.1 fL (80-100); MEAN CORPUSCULAR HEMOGLOBIN 31.3 pg (25-34); MEAN CORPUSCULAR HGB CONC 32.2 g/dl (32-36); MEAN PLATELET VOLUME 10.4 fL (7.4-10.4); PLATELET COUNT 183 K/uL (130-400); RED CELL DISTRIBUTION WIDTH CV 15.8 % (11.5-14.5); RED CELL DISTRIBUTION WIDTH SD 56.1 fL (36.4-46.3); WHITE BLOOD COUNT 6.52 K/uL (4.8-10.8)
== END | disposition home or self-care (01) ==
LOC: C.LABMFLN 09:12
PROVIDERS: ATTEND Internal Medicine Cardiovascular Disease
DX: I10 Essential (primary) hypertension (principal); E78.5 Hyperlipidemia, unspecified; Z79.899 Other long term (current) drug therapy; I48.0 Paroxysmal atrial fibrillation; I34.0 Nonrheumatic mitral (valve) insufficiency

== ENCOUNTER → 2018-03-28 | Outpatient (CLI) | payer OTHER ==
[2018-03-28 12:57] LABS: HEMATOCRIT 35.2 % (37-47); HEMOGLOBIN 11.1 g/dL (12.0-16.0); MEAN CORPUSCULAR HEMOGLOBIN 30.6 pg (25-34); MEAN CORPUSCULAR HGB CONC 31.5 g/dl (32-36); MEAN PLATELET VOLUME 10.2 fL (7.4-10.4); PLATELET COUNT 206 K/uL (130-400); RED CELL DISTRIBUTION WIDTH CV 15.9 % (11.5-14.5); RED CELL DISTRIBUTION WIDTH SD 56.3 fL (36.4-46.3)
[2018-03-28 13:22] LABS: ALBUMIN 3.3 gm/dl (3.4-5.0); BLOOD UREA NITROGEN 40 mg/dl (7-18); CALCIUM 8.8 mg/dl (8.5-10.1); CARBON DIOXIDE 28 mmol/L (21-32); CREATININE 1.86 mg/dl (0.60-1.20); GLUCOSE 96 mg/dl (70-99); PHOSPHORUS 4.3 mg/dl (2.5-4.9); POTASSIUM 5.2 mmol/L (3.5-5.1); SODIUM 139 mmol/L (136-145)
== END | disposition home or self-care (01) ==
LOC: C.LABMFLN 10:01
PROVIDERS: ATTEND Internal Medicine Nephrology
DX: N18.3 Chronic kidney disease, stage 3 (moderate) (principal)

== ENCOUNTER 2020-11-02 05:18 | Inpatient (IN) ==
--- NOTE | 2020-10-12 10:55 | PAT Medication Instructions ---
Medication Instructions Date of Service October 12, 2020 Home Medications Medication Instructions Recorded amiodarone 200 mg tablet 200 mg PO DAILY #90 tab 06/01/19 atorvastatin 10 mg tablet 10 mg PO QPM #90 tab 06/01/19 calcium carbonate-vitamin D3 600 1 cap PO BID #180 cap 06/01/19 mg calcium-200 unit capsule fluticasone 250 mcg-salmeterol 50 1 puffs INH BID #180 ea 06/01/19 mcg/dose blistr powdr for inhalation meclizine 25 mg tablet 25 mg PO TID PRN #90 tab 06/01/19 amlodipine 2.5 mg tablet 2.5 mg PO DAILY #30 tab 08/04/19 apixaban 2.5 mg tablet 2.5 mg PO BID #180 tab 08/10/20 amiodarone 200 mg tablet 200 mg PO DAILY atorvastatin 10 mg tablet 10 mg PO QPM calcium carbonate-vitamin D3 600 mg calcium-200 unit capsule 1 cap PO BID fluticasone 250 mcg-salmeterol 50 mcg/dose blistr powdr for inhalation 1 puffs INH BID meclizine 25 mg tablet 25 mg PO TID PRN amlodipine 2.5 mg tablet 2.5 mg PO DAILY apixaban 2.5 mg tablet 2.5 mg PO BID ascorbic acid (vitamin C) [Vitamin C] 500 mg PO DAILY ipratropium-albuterol [Combivent Respimat] 1 puff INHALATION BID ondansetron HCl [Zofran] 8 mg PO Q8H PRN ASK your prescriber and surgeon apixaban 2.5 mg tablet 2.5 mg PO BID (medication must be on hold for at least 72 hours in order to get spinal anesthesia) DO NOT take the morning of surgery calcium carbonate-vitamin D3 600 mg calcium-200 unit capsule 1 cap PO BID ascorbic acid (vitamin C) [Vitamin C] 500 mg PO DAILY Take morning of surgery With a small sip of water, OTHERWISE NOTHING TO EAT OR DRINK AFTER MIDNIGHT: amiodarone 200 mg tablet 200 mg PO DAILY fluticasone 250 mcg-salmeterol 50 mcg/dose blistr powdr for inhalation 1 puffs INH BID meclizine 25 mg tablet 25 mg PO TID PRN (if needed) amlodipine 2.5 mg tablet 2.5 mg PO DAILY ipratropium-albuterol [Combivent Respimat] 1 puff INHALATION BID ondansetron HCl [Zofran] 8 mg PO Q8H PRN (if needed) Take evening before surgery atorvastatin 10 mg tablet 10 mg PO QPM calcium carbonate-vitamin D3 600 mg calcium-200 unit capsule 1 cap PO BID fluticasone 250 mcg-salmeterol 50 mcg/dose blistr powdr for inhalation 1 puffs INH BID meclizine 25 mg tablet 25 mg PO TID PRN (if needed) ipratropium-albuterol [Combivent Respimat] 1 puff INHALATION BID ondansetron HCl [Zofran] 8 mg PO Q8H PRN (if needed) Other Notes If you have any questions please call us at [phone] or [phone] or [phone] or [phone]
--- NOTE | 2020-10-12 13:00 | Anesthesiology Consultation ---
Date of Service October 12, 2020 Assessment & Plan (1) Encounter for pre-operative examination: Chart Review Chart Review: Pending: Refer to Additional Notes / Consult section (pending 10/27 PCP clearance and preop Covid testing ) and Patient seen in Pre Admission Testing Awaiting PCP clearance scheduled 10/27/20. Did write note to PCP re: abnormal CXR to address at upcoming PCP appt. Per PAT appointment 10/12/2020, patient denies any recent travel. No known Covid in the past 90 days. No known Covid positive contacts or Covid related symptoms. Educated patient to follow up with surgeon's office regarding Covid testing- educated Covid testing usually done 6-7 days prior to surgery. Educated on importance of self quarantining, social distancing and wearing mask in public both for the patient and household contacts. Patient seen by cardiology 02/08/2020 = paroxysmal A. fibremains in sinus rhythm while on amiodarone. Continue current meds. Continue Eliquis. Mitral regurgit ationnonsevere, asymptomatic. Can monitor periodically over time. HypertensionBP well controlled. Dyslipidemiamanaged by PCP. Follow-up in 6 months. Teaching & Discussion Pre-Anesthesia Teaching/Discussion Notes: Instructed NPO after midnight before surgery,except medications with 15 cc of water. Medication instructions provided according to the PAT guidelines. History Surgery Operation Date: 11/02/20 07:15 Proposed Procedures p Left Total Knee Arthroplasty - Herve Tapia DO Height/Weight Height: 5 ft 3 in Weight: 63 kg Allergies Allergy/AdvReac Type Severity Reaction Status Date / Time lisinopril Allergy Intermediate FACIAL Unverified 10/11/20 12:49 SWELLING AND RT UPPER THIGH PAIN Penicillins Allergy Intermediate HIVES Verified 10/11/20 12:49 Medications Home Medications Medication Instructions Recorded Confirmed Last Taken amiodarone 200 mg tablet 200 mg PO DAILY #90 tab 06/01/19 10/11/20 Unknown atorvastatin 10 mg tablet 10 mg PO QPM #90 tab 06/01/19 10/11/20 Unknown calcium carbonate-vitamin D3 600 1 cap PO BID #180 cap 06/01/19 10/11/20 Unknown mg calcium-200 unit capsule fluticasone 250 mcg-salmeterol 50 1 puffs INH BID #180 ea 06/01/19 10/11/20 Unk nown mcg/dose blistr powdr for inhalation meclizine 25 mg tablet 25 mg PO TID PRN #90 tab 06/01/19 10/11/20 Unknown amlodipine 2.5 mg tablet 2.5 mg PO DAILY #30 tab 08/04/19 10/11/20 Unknown apixaban 2.5 mg tablet 2.5 mg PO BID #180 tab 08/10/20 10/11/20 Unknown ascorbic acid (vitamin C) [Vitamin 500 mg PO DAILY 10/11/20 10/11/20 Unknown C] ipratropium-albuterol [Combivent 1 puff INHALATION BID 10/11/20 10/11/20 Unknown Respimat] ondansetron HCl [Zofran] 8 mg PO Q8H PRN 10/11/20 10/11/20 Unknown Past Medical History Medical History Chronic kidney disease, stage 4 (severe) Follows with nephro Baseline creat 1.7-2.0 per 07/2020 nephro note COPD (chronic obstructive pulmonary disease) Breathing stable and controlled Dyslipidemia Hearing deficit Wears hearing aids bilaterally Hypertension Murmur, cardiac Chronic- hx of mild to moderate MR- follows with cardio routinely- last ECHO 2017 Osteoarthritis Paroxysmal atrial fibrillation REASON FOR ELIQUIS Stress incontinence Vertigo No recent vertigo Exercise / Class Metabolic Activity III < 4 Walking/Shop/Light housework (no chest pain or SOB with short distance, flat surface ambulation ) Past Family History Family History Sister Breast cancer Stroke Mother Diabetes CHF (congestive heart failure) Father Diabetes Brother Stroke Daughter Diabetes Family history of diabetes mellitus Family hx of colon cancer Other No family history of adverse response to anesthesia Past Surgical History Surgical History History of bowel resection "COLON MASS REMOVED/BENIGN" History of bunionectomy RT/LEFT History of colonoscopy History of esophagogastroduodenoscopy (EGD) History of repair of rotator cuff RT History of tooth extraction Past Anesthesia History No Hx of Anesthesia Complications and No Family Hx of Anesthesia Complications History of PONV No Hx of PONV and No Hx of Motion Sickness Social History Smoking Status: Never smoker Hx Alcohol Use: No Hx Substance Use: No substance use type: does not use Review of Systems Chronic cough- occ - non productive- secondary to COPD- no change Patient denies chest pain, shortness of breath, dyspnea on exertion, reflux, wheezing, palpitations. No hx of seizures, stroke, MO, apnea/snoring. No hx of blood clots or blood transfusions Physical Exam Vital Signs VITALS BP 115/66 P 66 TEMP 98.3 SP02 96% RESP 16 Constitutional no acute distress ENMT Mouth: no TMJ clicking Thyromental Distance: > or= 3.5 Finger Breadths (3.5) Mallampati Class: III Full dentures on top and bottom Neck + limited neck extension (significant ) Respiratory normal respiratory effort; no respiratory distress Auscultation: lungs clear to auscultation bilaterally; no wheezes Cardiovascular Rate/Rhythm: regular rate and regular rhythm Heart Sounds: + murmur (III/ murmur ) Vessels: no carotid bruit Musculoskeletal Spine: no pain with cervical ROM Extremities: extremities normal to inspection Psychiatric Orientation: alert Testing Laboratory Results 10/12/20 13:17 10/12/20 13:17 PT 10.2 Seconds (9.0-12.0) 10/12/20 13:17 INR 1.0 (0.9-1.1) 10/12/20 13:17 APTT 25.6 Seconds (21.0-31.0) 10/12/20 13:17 Hemoglobin A1c 5.7 % (4.5-5.6) H 10/12/20 13:17 Urine Color Yellow 10/12/20 13:17 Urine Appearance Clear (Clear) 10/12/20 13:17 Urine pH 5.0 (4.5-7.5) 10/12/20 13:17 Ur Specific [place] 1.017 (1.000-1.030) 10/12/20 13:17 Urine Protein Trace (Negative) H 10/12/20 13:17 Urine Glucose (UA) Negative (Negative) 10/12/20 13:17 Urine Ketones Negative (Negative) 10/12/20 13:17 Urine Nitrite Negative (Negative) 10/12/20 13:17 Ur Leukocyte Esterase Trace (Negative) H 10/12/20 13:17 Urine WBC (Auto) 1-5 /hpf (0-5) 10/12/20 13:17 Urine RBC (Auto) 0-4 /hpf (0-4) 10/12/20 13:17 U Hyaline Cast (Auto) 1-5 /lpf (0-5) 10/12/20 13:17 U Epithel Cells (Auto) 5-10 /lpf (0-5) H 10/12/20 13:17 Urine Bacteria (Auto) Negative (Negative) 10/12/20 13:17 Blood Type B Positive 10/12/20 13:17 Antibody Screen NEGATIVE 10/12/20 13:17 Creat baseline per patient Anemia chronic and stable Electrocardiogram Date: 02/09/20 SR with 60 bpm. Nonspecific T wave abnormality. Chest X-Ray Date: 10/12/20 Findings: + NAD Hyperinflation with chronic interstitial coarsening and chronic pleural thickening of the apices. No pneumothorax, pleural effusion, airspace elevation or overt pulmonary edema. Indeterminate 3.5 x 1.0 cm nodular opacity of the left lung apex may reflect scarring versus pulmonary lesion. This could be assessed with a nonemergent follow-up chest CT. Echocardiogram Date: 06/10/18 EF: 55-60% LV Function: normal Other Findings: no LVH Severe atrial dilation. Mild right atrial dilation. Sclerotic aortic valve without significant stenosis. Mild to moderate MR. No significant change from prior study on 04/25/2017.
--- NOTE | 2020-10-12 13:57 | XRay Report ---
XR chest Pre-admission PA/Lat HISTORY: 85 years-old Female pat preoperative exam. No acute chest complaints COMPARISON: Chest radiograph 10/16/2012 TECHNIQUE: PA and lateral views of the chest FINDINGS: Cardiomediastinal and hilar silhouettes are unchanged. Hyperinflation with chronic interstitial coars ening and chronic pleural thickening of the apices. No pneumothorax, pleural effusion, airspace eleva tion or overt pulmonary edema. There is an ill-defined 3.5 x 1.0 cm linear nodular opacity projected of the left lung apex. Degenerative changes of the shoulders and spine with sigmoidal thoracic scolio sis. IMPRESSION: 1. No acute process. 2. Indeterminate 3.5 x 1.0 cm nodular opacity of the left lung apex may reflect scarring versus pulmo nary lesion. This could be assessed with a nonemergent follow-up chest CT. ACT 112: Negative or not required by law. The above report was generated using voice recognition software. It may contain grammatical, syntax o r spelling errors. Electronically signed by: Yuval Ty M.D. 10/12/2020 1:55 PM
[2020-10-12 14:08] LABS: Basophils # (auto) 0.01 K/uL (0-0.2); Basophils % (auto) 0.2 %; Eosinophils # (auto) 0.14 K/uL (0-0.5); Eosinophils % (auto) 2.3 %; Hematocrit (blood only) 33.8 % (37-47); Immature Granulocytes # (auto) 0.01 K/uL (0.00-0.02); Immature Granulocytes % (auto) 0.2 %; Lymphocytes # (auto) 1.02 K/uL (1.2-3.4); Lymphocytes % (auto) 16.7 %; Mean Corpuscular Hemoglobin 31.7 pg (25-34); Mean Corpuscular Hgb Conc 32.5 g/dL (32-36); Mean Corpuscular Volume 97.4 fL (80-100); Monocytes # (auto) 0.53 K/uL (0.11-0.59); Monocytes % (auto) 8.7 %; Neutrophils # (auto) 4.41 K/uL (1.4-6.5); Neutrophils % (auto) 71.9 %; Platelet Count 189 K/uL (130-400); RDW Coefficient of Variation 14.8 % (11.5-14.5); RDW Standard Deviation 52.7 fL (36.4-46.3); Red Blood Count 3.47 M/uL (4.2-5.4); White Blood Count 6.12 K/uL (4.8-10.8)
[2020-10-12 14:14] LABS: Appearance Urine Clear (Clear); Bacteria Urine Automated Negative (Negative); Bilirubin Urine Negative (Negative); Blood Urine 1+ (Negative); Color Urine Yellow; Glucose Urine UA Negative (Negative); Ketones Urine Negative (Negative); Leukocyte Esterase Urine Trace (Negative); Nitrite Urine Negative (Negative); Protein Urine Trace (Negative); RBC Urine Automated 0-4 /hpf (0-4); Specific Gravity Urine 1.017 (1.000-1.030); Urobilinogen Urine Negative (Negative)
[2020-10-12 14:27] LABS: Estimated Average Glucose 117 mg/dl; Hemoglobin A1C 5.7 % (4.5-5.6)
[2020-10-12 14:28] LABS: Partial Thromboplastin Time 25.6 Seconds (21.0-31.0); Prothrombin Time 10.2 Seconds (9.0-12.0)
[2020-10-12 14:46] LABS: Albumin Level 3.2 gm/dl (3.4-5.0); BUN Creatinine Ratio 24.2 (10-20); Calcium 8.8 mg/dl (8.5-10.1); Creatinine Clr Calc Pharmacy 21.2 ml/min; Est GFR (African American) 31.6; Est GFR (Non-African American) 27.2; Potassium 4.4 mmol/L (3.5-5.1)
--- NOTE | 2020-11-01 13:57 | History & Physical Report ---
Date of Service November 01, 2020 Assessment & Plan (1) Osteoarthritis of left knee: Schedule a left TKA for 11.02.20. All potential risks, benefits, complications, alternatives, and rehab have been discussed with the patient and she wishes to proceed. Plan to restart Eliquis for post op DVT prophylaxis. History of Present Illness Chief Complaint: left knee pain Primary Care Provider: Pardeep Lin MD This is a patient with chronic left knee pain and treated for left knee DJD for a long period of time. She has since failed all conservative management and is now being set up for surgical tx. She is now being set up for left TKA. Allergies Allergy/AdvReac Type Severity Reaction Status Date / Time lisinopril Allergy Intermediate FACIAL Verified 10/27/20 15:45 SWELLING AND RT UPPER THIGH PAIN Penicillins Allergy Intermediate HIVES Verified 10/27/20 15:45 Home Medications Medication Instructions Recorded Confirmed Type amiodarone 200 mg tablet 200 mg PO DAILY #90 tab 06/01/19 10/27/20 Rx atorvastatin 10 mg tablet 10 mg PO QPM #90 tab 06/01/19 10/27/20 Rx calcium carbonate-vitamin D3 600 1 cap PO BID #180 cap 06/01/19 10/27/20 Rx mg calcium-200 unit capsule fluticasone 250 mcg-salmeterol 50 1 puffs INH BID #180 ea 06/01/19 10/27/20 Rx mcg/dose blistr powdr for inhalation meclizine 25 mg tablet 25 mg PO TID PRN #90 tab 06/01/19 10/27/20 Rx amlodipine 2.5 mg tablet 2.5 mg PO DAILY #30 tab 08/04/19 10/27/20 Rx apixaban 2.5 mg tablet 2.5 mg PO BID #180 tab 08/10/20 10/27/20 Rx ascorbic acid (vitamin C) [Vitamin 500 mg PO DAILY 10/11/20 10/27/20 History C] ipratropium-albuterol [Combivent 1 puff INHALATION BID 10/11/20 10/27/20 History Respimat] ondansetron HCl [Zofran] 8 mg PO Q8H PRN 10/11/20 10/27/20 History Past Med/Surg History Medical History Chronic anticoagulation Chronic kidney disease, stage 4 (severe) COPD (chronic obstructive pulmonary disease) Dyslipidemia Hearing deficit Hypertension Localized osteoarthritis of left knee Lung nodule seen on imaging study Murmur, cardiac Osteoarthritis Paroxysmal atrial fibrillation Stress incontinence Vertigo Surgical History History of arthroscopy of left shoulder History of bowel resection History of bunionectomy History of colonoscopy History of esophagogastroduodenoscopy (EGD) History of repair of rotator cuff History of tooth extraction Family History Sister Breast cancer Stroke Mother Diabetes CHF (congestive heart failure) Father Diabetes Brother Stroke Daughter Diabetes Family history of diabetes mellitus Family hx of colon cancer Other No family history of adverse response to anesthesia Social History Smoking Status: Never smoker Second Hand Exposure: Yes (IN THE PAST); Hx Alcohol Use: No Hx Substance Use: No Preferred Language: Irish Utilities Manager Required: No Beliefs That Will Affect Care: None Current Living Situation: Family Current Living Situation Comment: WITH DAUGHTER Feels Safe at Home: Yes Assistive Devices: Denture - Upper, Denture - Lower, Glasses, Hearing Aid - Bilateral and Walker Physical Exam Constitutional: well developed and well nourished; no acute distress ENMT: external ear and nose normal, oropharynx normal Neck: trachea midline, no thyromegaly Respiratory: normal respiratory effort, lungs clear to auscultation Cardiovascular: Rate/Rhythm: + irregularly irregular Gastrointestinal (Abdomen): normal bowel sounds, soft, nontender, no hepa tosplenomegaly Musculoskeletal: Knee: + limited ROM of knee (left knee: -7 degrees extension), + valgus alignment (left) and + Geovany's sign positive (left); no skin erythema and no ecchymosis Skin: no rashes, warm and dry Neurologic: normal touch/pain/proprioception Psychiatric: A+Ox3, euthymic affect Speech: normal rate/rhythm/volume of speech Lymphatic: no cervical or axillary lymphadenopathy
[2020-11-02] MEDS ORDERED: ROPIVACAINE 0.5% HCL/PF 150 MG, BUPIVACAINE 0.75% MPF 20 ML, EPINEPHrine 30MG/30ML (OR ... INSTIL SCH (06:00)
[2020-11-02] MEDS ORDERED: GABAPENTIN 300 MG CAP PO SCH (06:00)
[2020-11-02] MEDS ORDERED: ACETAMINOPHEN 500 MG TAB PO SCH (06:00)
[2020-11-02] MEDS ORDERED: SODIUM CHLORIDE 0.9% 1000ML IV SCH (06:00)
[2020-11-02] MEDS ORDERED: dexAMETHasone 4 MG TAB PO SCH (06:00)
[2020-11-02] MEDS ORDERED: VANCOMYCIN HCL 1,000 MG/270 ML BAG IV SCH (06:00)
[2020-11-02] MEDS ORDERED: METOCLOPRAMIDE HCL 10 MG TABLET PO SCH (06:00)
[2020-11-02] MEDS ORDERED: FAMOTIDINE 20 MG TAB PO SCH (06:00)
[2020-11-02] MEDS ORDERED: CeleBREX 200 MG CAP PO SCH (06:00)
[2020-11-02] MEDS ORDERED: BUPIVACAINE 0.5 % 5 MG/1 ML PF 10ML VIAL ONE (06:11)
[2020-11-02] MEDS ORDERED: BUPIVACAINE 0.25% 30 ML VIAL ONE (06:11)
[2020-11-02] MEDS ORDERED: fentaNYL citrate 100 MCG/2 ML VIAL ONE (06:41)
[2020-11-02] MEDS ORDERED: MIDAZOLAM HCL 1 MG/ML 2ML VIAL ONE (06:41)
[2020-11-02] MEDS ORDERED: ONDANSETRON INJ 2 MG/ML 2 ML VIAL ONE (06:42)
[2020-11-02] MEDS ORDERED: PROPOFOL IV EMULSION 10 MG/ML 20 ML VIAL IV ONE (06:42)
[2020-11-02] MEDS ORDERED: LIDOCAINE HCL 2% 2 ML VIAL/AMP(20MG/ML) INFIL ONE (06:42)
[2020-11-02] MEDS ORDERED: BACITRACIN INJ 50,000 UNIT VIAL ONE ×2 (07:14→09:13)
[2020-11-02] MEDS ORDERED: ORTHO JOINT ANESTHETIC ONE (07:14)
--- NOTE | 2020-11-02 07:25 | History & Physical Bridge Note ---
Date of Service November 02, 2020 History & Physical Bridge Note I have examined the patient, reviewed the History & Physical and in the interval since the performance of the History & Physical I have noted the following changes of clinical significance: no changes noted
[2020-11-02] MEDS ORDERED: ONDANSETRON INJ 2 MG/ML 2 ML VIAL IV PRN (08:54)
[2020-11-02] MEDS ORDERED: ATROPINE SULFATE 0.1 MG/ML 10ML SYR IV PRN (08:54)
[2020-11-02] MEDS ORDERED: fentaNYL citrate 100 MCG/2 ML VIAL IV PRN (08:54)
[2020-11-02] MEDS ORDERED: ePHEDrine sulfate 50 MG/ML AMP IV PRN (08:54)
--- NOTE | 2020-11-02 09:35 | XRay Report ---
XR knee LT 1 or 2V routine CLINICAL HISTORY: Assess for foreign body. Intraoperative study. COMPARISON STUDY: None. FINDINGS: Intraoperative study of the left knee demonstrates partial resection of the femoral condyle s and tibial plateaus in preparation for a left knee arthroplasty. No metallic foreign bodies identif ied. IMPRESSION: No metallic foreign bodies within the left knee. ACT 112: Negative or not required by law. Electronically signed by: Felipe Felder M.D. 11/02/2020 9:34 AM
--- NOTE | 2020-11-02 09:42 | Post Operative Brief Note ---
Immediate Post Op Note v1 Date of Surgery November 02, 2020 Pre & Post Diagnosis Operation Date: 11/02/20 07:15 Pre-Op Diagnosis: Unilateral Primary Osteoarthritis, Left Knee, severe genu valgum, flexion contracture left knee, left knee pain Post-Op Diagnosis: Unilateral Primary Osteoarthritis, Left Knee, severe genu valgum, flexion contracture left knee, left knee pain I identified the patient and participated in the time-out.: Yes Procedure Operation Date: 11/02/20 07:15 Actual Procedures p Left Total Knee Arthroplasty with [employer]abe [employer] Nephew journey 2 MRI matched blocks, femur 6, tibia 5, patella 35 mm, posterior stabilized polyethylene 12 mm (Left) - Herve Tapia DO Surgeon Herve Tapia DO Industrial Maintenance Repairer Alessio Lerma PA-C Estimated Blood Loss 20 Findings Consistent with Post-Op Diagnosis Specimens Bone and tissue left knee Drains Hemovac Drain (10 fr dual trocar) Anesthesia Type Spinal MAC Complications none Disposition Accompanied Patient To Recovery: No Disposition: Recovery Room
--- NOTE | 2020-11-02 11:04 | Anesthesiology Progress Note ---
Date of Service November 02, 2020 Anesthesia Post Procedure Vital Signs Vital Signs: Temp Pulse Pulse Resp BP Pulse Ox 11/02/20 10:45 37.0 C 68 16 117/62 94 11/02/20 10:35 69 14 122/57 L 95 11/02/20 10:25 69 13 121/58 L 93 11/02/20 10:15 67 12 122/57 L 95 11/02/20 10:09 36.8 C 68 15 113/56 L 98 11/02/20 05:30 36.7 C 73 18 175/87 H 95 Transfer of Care Handoff Completed per policy Notes Mental Status: alert / awake / arousable and participated in evaluation Nausea / Vomiting: adequately controlled Pain: adequately controlled Airway Patency, RR, SpO2: stable & adequate BP & HR: stable & adequate Hydration State: stable & adequate Neuraxial Anesthesia: was administered and sensory block is resolving Anesthetic Complications: no major complications apparent and Pt Satisfied with anesthetic care
[2020-11-02] MEDS ORDERED: HYDROmorphone INJ 0.5 MG/0.5 ML SYR IV PRN (11:25)
[2020-11-02] MEDS ORDERED: METOCLOPRAMIDE HCL INJ 5 MG/ML 2 ML VIAL IV PRN (11:25)
[2020-11-02] MEDS ORDERED: bisacodyL 10 MG SUPP PR PRN (11:25)
[2020-11-02] MEDS ORDERED: MAGNESIUM HYDROXIDE SUSP 30 ML UDC PO PRN (11:25)
[2020-11-02] MEDS ORDERED: NALOXONE HCL 0.4 MG/1 ML VIAL/CARP IV PRN (11:25)
[2020-11-02] MEDS ORDERED: diphenhydrAMINE Capsule 25 MG CAP PO PRN (11:25)
[2020-11-02] MEDS ORDERED: VANCOMYCIN CONSULT ACTIVE PRN (11:25)
[2020-11-02] MEDS ORDERED: ONDANSETRON 8MG OD TAB PO PRN (11:34)
--- NOTE | 2020-11-02 11:50 | XRay Report ---
XR knee LT 1 or 2V routine CLINICAL HISTORY: Postoperative evaluation. COMPARISON: Left knee radiographs November 02, 2020 at 8:57 AM. FINDINGS: Alignment of the left knee arthroplasty is anatomic. There is no periprosthetic fracture o r unexpected radiopaque foreign body. There are skin sri. Surgical drains are in place. IMPRESSION: Expected findings following total left knee arthroplasty. ACT 112: Negative or not required by law. Electronically signed by: Fahad Ceballos M.D. 11/02/2020 11:49 AM
--- NOTE | 2020-11-02 11:50 | Hospitalist Consultation ---
Date of Consultation November 02, 2020 Assessment & Plan (1) Osteoarthritis of left knee: S/p left total knee arthroplasty performed 11/02/2020 Pain management per primary orthopedic team. DVT prophylaxis with Eliquis as below. (2) COPD (chronic obstructive pulmonary disease): Continue Advair Diskus 1 puff twice daily or hospital formulary equivalent if patient does not have her own. (3) Hypertension: Continue amlodipine 2.5 mg p.o. daily with hold parameters added if systolic blood pressure less than 100. (4) Paroxysmal atrial fibrillation: Continue rhythm control strategy with amiodarone 200 mg p.o. daily. TSH normal in January 2020. Restarted on Eliquis per orthopedic recommendations, no urgency to restart this for atrial fibrillation - ordered for tomorrow morning. (5) Chronic kidney disease, stage 4 (severe): Follows with Dr Hart as an outpatient - suspected secondary to microvascular disease with baseline creatinine 1.7-2.0. Preop labs with creatinine 1.67 at baseline. Avoid further NSAIDs (notably received Celebrex this morning preoperatively) - repeat creatinine with a.m. labs. Given Celebrex use with CKD stage IV will review patient in a.m but likely can sign off at that time if creatinine stable. History of Present Illness Reason for Consultation: Medical management Attending Physician: Herve Tapia, History of Present Illness Sofiya Mercado is an 85-year-old female who presents for elective left total knee arthroplasty performed earlier today by Dr. Tapia. Medicine consulted for medical management. The patient reports no ongoing issues at this time. COPD stable with current medications. She reports no recent increase shortness of breath or cough. On amiodarone for atrial fibrillation but currently in regular rhythm. She has been appropriately holding apixaban for this operation. CKD stage IV under Dr. Hart has recently been stable with baseline creatinine 1.7-2.0. Allergies Allergy/AdvReac Type Severity Reaction Status Date / Time lisinopril Allergy Intermediate FACIAL Verified 11/02/20 06:02 SWELLING AND RT UPPER THIGH PAIN Penicillins Allergy Intermediate HIVES Verified 11/02/20 06:02 Home Medications Medication Instructions Recorded Confirmed Type amiodarone 200 mg tablet 200 mg PO DAILY #90 tab 06/01/19 11/02/20 Rx atorvastatin 10 mg tablet 10 mg PO QPM #90 tab 06/01/19 11/02/20 Rx calcium carbonate-vitamin D3 600 1 cap PO BID #180 cap 06/01/19 11/02/20 Rx mg calcium-200 unit capsule fluticasone 250 mcg-salmeterol 50 1 puffs INH BID #180 ea 06/01/19 11/02/20 Rx mcg/dose blistr powdr for inhalation meclizine 25 mg tablet 25 mg PO TID PRN #90 tab 06/01/19 11/02/20 Rx amlodipine 2.5 mg tablet 2.5 mg PO DAILY #30 tab 08/04/19 11/02/20 Rx apixaban 2.5 mg tablet 2.5 mg PO BID #180 tab 08/10/20 11/02/20 Rx ascorbic acid (vitamin C) [Vitamin 500 mg PO DAILY 10/11/20 11/02/20 History C] ipratropium-albuterol [Combivent 1 puff INHALATION BID 10/11/20 11/02/20 History Respimat] ondansetron HCl [Zofran] 8 mg PO Q8H PRN 10/11/20 11/02/20 History Patient History Medical History Chronic anticoagulation Chronic kidney disease, stage 4 (severe) COPD (chronic obstructive pulmonary disease) Dyslipidemia Hearing deficit Hypertension Localized osteoarthritis of left knee Lung nodule seen on imaging study Murmur, cardiac Osteoarthritis Paroxysmal atrial fibrillation Stress incontinence Vertigo Surgical History History of arthroscopy of left shoulder History of bowel resection History of bunionectomy History of colonoscopy History of esophagogastroduodenoscopy (EGD) History of repair of rotator cuff History of tooth extraction Family History Sister Breast cancer Stroke Mother Diabetes CHF (congestive heart failure) Father Diabetes Brother Stroke Daughter Diabetes Family history of diabetes mellitus Family hx of colon cancer Other No family history of adverse response to anesthesia Social History Smoking Status: Never smoker Second Hand Exposure: Yes (IN THE PAST); Hx Alcohol Use: No Hx Substance Use: No Preferred Language: Latvian Communication Ability: Effective Transportation Dispatcher Required: No Beliefs That Will Affect Care: None marital status: / Current Living Situation: Family Current Living Situation Comment: WITH DAUGHTER Feels Safe at Home: Yes Safety Concerns: Feels Safe At This Time Assistive Devices: Glasses and Walker Review of Systems Review of Systems: All systems reviewed & are unremarkable except as noted in HPI & below Physical Exam Constitutional: well developed and well nourished; no acute distress Eyes: + anicteric sclerae; normal pupil size ENMT: external ear and nose normal, oropharynx normal Respiratory: normal respiratory effort, lungs clear to auscultation Cardiovascular: Rate/Rhythm: regular rate and regular rhythm Heart Sounds: no murmur Vessels: no JVD Extremities: normal capillary refill (Distal left toes) Gastrointestinal (Abdomen): normal bowel sounds, soft, nontender, no hepatosplenomegaly Skin: no rashes, warm and dry Neurologic: moves all extremities and awake; not confused Psychiatric: A+Ox3, euthymic affect Results & Data Results & Data ([facility]) Vital Signs (Past 12 Hours) Vital Signs Temp Pulse Pulse Resp BP Pulse Ox 11/02/20 11:10 37.0 C 67 18 116/61 95 11/02/20 10:45 37.0 C 68 16 117/62 94 11/02/20 10:35 69 14 122/57 L 95 11/02/20 10:25 69 13 121/58 L 93 11/02/20 10:15 67 12 122/57 L 95 11/02/20 10:09 36.8 C 68 15 113/56 L 98 11/02/20 05:30 36.7 C 73 18 175/87 H 95 PG Care Time/CCT Total # of Minutes Spent Total Time Spent with Patient: Total time spent is greater than 50% in coordination of care (as documented) at patient's floor/unit and/or counseling patient: Coding Level of Care Code 82224 Inpt Consult Level 4 Diagnoses Osteoarthritis of left knee M17.12 Osteoarthritis type: primary COPD (chronic obstructive pulmonary disease) J44.9 COPD type: unspecified COPD Hypertension I10 Hypertension type: essential hypertension Paroxysmal atrial fibrillation I48.0 Chronic kidney disease, stage 4 (severe) N18.4 (1) Osteoarthritis of left knee Osteoarthritis type: primary Qualified Code(s): M17.12 - Unilateral primary osteoarthritis, left knee (2) COPD (chronic obstructive pulmonary disease) COPD type: unspecified COPD Qualified Code(s): J44.9 - Chronic obstructive pulmonary disease, unspecified (3) Hypertension Hypertension type: essential hypertension Qualified Code(s): I10 - Essential (primary) hypertension
[2020-11-02] MEDS: SODIUM CHLORIDE 0.9% 1000ML 1,000 ML IV SCH ×2 (13:14→23:30)
[2020-11-02] MEDS: ACETAMINOPHEN 500 MG TAB PO SCH ×2 (13:14→21:42)
--- NOTE | 2020-11-02 14:49 | Operative Report (OR) ---
DATE OF OPERATION: 11/02/2020 PREOPERATIVE DIAGNOSES: 1. Left knee degenerative joint disease. 2. Osteoarthritis, left knee. 3. Genu valgum. 4. Flexion contracture. 5. Left knee pain. POSTOPERATIVE DIAGNOSES: 1. Left knee degenerative joint disease. 2. Osteoarthritis, left knee. 3. Genu valgum. 4. Flexion contracture. 5. Left knee pain. PROCEDURE: Left total knee arthroplasty using a Mccabe [employer] Nephew [employer] II total knee arthroplasty with MRI matched blocks, size 6 femur, size 5 tibia, patella 35 mm, polyethylene posterior stabilized 12 mm. SURGEON: Herve Tapia DO. [place]: Alessio Lerma PA-C who was present for patient positioning, sterile prep and drape, management of retractors and instruments. He was present through the critical portions of the case including wound closure, application of sterile dressing and transport of the patient to recovery. ANESTHESIA: Spinal with regional block and intra-articular local. SPECIMENS: Bone and tissue, left knee. DRAINS: Hemovac x2. COMPLICATIONS: None. BLOOD LOSS: 20 mL. PERTINENT HISTORY: This is an 85-year-old woman who has had chronic progressive and worsening left knee pain, loss of function, loss of mobility and worsened degenerative arthritis over the last 12-24 months. She had attempted and failed conservative management including physical therapy, bracing, modification of activities, anti-inflammatories, steroid injections, hyaluronic acid injections and use of an assistive device. Radiographs demonstrate severe degenerative arthritis with loss of joint space, marginal osteophytes, subchondral sclerosis, subchondral cysts, genu valgum and flexion contracture. The patient was scheduled for surgery as indicated. All potential risks, benefits, complications, alternatives, rehab potential for incomplete relief of symptoms, need for further surgery, DVT, PE, , persistent pain, swelling, scarring, weakness, neurovascular injury, wound complications, hardware failure, nonunion, malunion, bone fracture were discussed with the patient. The patient decided to proceed with the procedure as indicated. DESCRIPTION OF PROCEDURE: The patient was taken to the Operative Suite and placed supine on the operating table after spinal epidural was initiated. Next, tourniquet was placed high on the left thigh over cast padding and the patient was sedated. The left lower extremity was then sterilely prepped and draped in the usual fashion. It was elevated and exsanguinated with an Esmarch bandage and tourniquet inflated to 350 mmHg. Next, a 10-blade scalpel incision was made along the anterior midline of the left knee with incision deep through the subcutaneous tissue. Meticulous hemostasis was utilized with electrocautery. Full thickness skin flaps were developed both medially and laterally and 10-blade scalpel was used to make a median parapatellar incision in the extensor. The patella was everted and soft tissue releases were performed. The medial collateral was noted to be slightly tight so this was partially released using pie-crusting technique and the Cruz elevator was placed from the posterior aspect of the capsule releasing any contracture. Next, the patella was everted and resurfaced using sagittal saw and orthogonal cuts. After caliper measured 23 mm, residual patella was approximately 13 mm and 35 mm button trial was placed and then drilled. Next, the appropriate retractors were placed and the femoral patient matched cutting block was pinned to the distal aspect of the femur. The distal femoral cut was made and pinned with pins and the distal femoral cutting guide was removed. The 4-in-1 cutting block was then pinned in place and anterior, posterior, anterior chamfer, and posterior chamfer cuts were made. Block and bone fragments were then removed followed by exposure of the proximal tibia. Sharp Hohmann was used to place just posterior to the tibia to protract it. Medial and lateral sharp Hohmann's were placed to protect the soft tissue and the tibial cutting block was then pinned in place. Tibial alignment adela was utilized to confirm alignment and the proximal tibia was then cut made with sagittal saw. Fragment was removed. The size 5 tibial trial was pinned in place and circumferential proximal release was performed with electrocautery around the proximal tibia. Next, the femoral trial was placed within appropriate medial and lateral alignment and then the cutting block was then put into place. It was reamed and box cut was performed. Excess debris was removed from the femoral notch. The insert was placed into the distal aspect of the femur. Trial poly size 12 mm was placed in the proximal tibia. The knee was reduced. Trial poly size 35 mm was placed in the patella. The knee was reduced. Excellent alignment and range of motion was achieved with correction of the genu varum and flexion contracture was achieved. Of note, +2 distal femoral cut was performed as a result of his flexion contracture prior to placement of the 4-in-1 cutting block. Next, all components were removed. The Orthomix was injected into the posterior capsule and anterior aspect of the capsule. Next, the wound was lavaged with pulsatile lavage and all surfaces were suctioned and dried. Palacos-G cement was placed in the distal femur, proximal tibia, patella, and then a small amount was placed in the canal of the tibia. All implants were impacted into place in a stable fashion. Excess cement was removed from the joint. The patellar button was cemented and clamped in place. After sufficient drying time elapsed a 10-Macedonian double lumen Hemovac drain was placed in the anterolateral aspect of the knee. The extensor mechanism was closed using interrupted #1 Vicryl. The dermis was closed using buried interrupted 2-0 Vicryl. The skin was closed with skin sri. Sterile compressive dressing from the toes to the groin was applied. The tourniquet was released. The patient was awakened and taken to the Recovery Room in stable condition. I attest to the content of the Intraoperative Record and any orders documented therein. Any exceptions are noted below. CUCAD
[2020-11-02] MEDS: oxyCODONE HCL IR 5 MG TAB (IMMEDIATE RELEASE) PO PRN (17:52)
[2020-11-02] MEDS ORDERED: VANCOMYCIN HCL 1,000 MG in SODIUM CHLORIDE 0.9% 250 ML IV SCH (18:00)
[2020-11-02] MEDS: Albuterol HFA 8 GM Inhaler (Combivent Respimat P&T Subs) INH SCH (20:49)
[2020-11-02] MEDS: Ipratropium HFA Inhaler (Combivent Respimat P&T Subs) INH SCH (20:50)
[2020-11-02] MEDS ORDERED: IPRATROPIUM BROMIDE/ALBUTEROL respimat INH INH SCH (21:00)
[2020-11-02] MEDS: FLUTICASONE/VILANTEROL 100/25MCG 14 PUFFS/INHALER INH SCH (21:39)
[2020-11-02] MEDS: ATORVASTATIN 10 MG TAB PO SCH (21:41)
[2020-11-02] MEDS: DOCUSATE SODIUM 100 MG CAP PO SCH (21:41)
[2020-11-02] MEDS: SENNA 8.6 MG TAB PO SCH (21:41)
[2020-11-02] MEDS: CALCIUM 600MG + VIT D 400 IU TAB PO SCH (21:42)
[2020-11-03] MEDS: oxyCODONE HCL IR 5 MG TAB (IMMEDIATE RELEASE) PO PRN ×3 (04:30→14:25)
[2020-11-03] MEDS: ACETAMINOPHEN 500 MG TAB PO SCH ×3 (05:02→22:17)
[2020-11-03 06:47] LABS: Hematocrit (blood only) 25.1 % (37-47); Hemoglobin 8.2 g/dL (12.0-16.0); Mean Corpuscular Hemoglobin 31.7 pg (25-34); Mean Corpuscular Hgb Conc 32.7 g/dL (32-36); Mean Corpuscular Volume 96.9 fL (80-100); Mean Platelet Volume 9.2 fL (7.4-10.4); Platelet Count 181 K/uL (130-400); RDW Standard Deviation 53.3 fL (36.4-46.3); Red Blood Count 2.59 M/uL (4.2-5.4); White Blood Count 16.78 K/uL (4.8-10.8)
[2020-11-03 07:15] LABS: BUN Creatinine Ratio 23.1 (10-20); Calcium 7.7 mg/dl (8.5-10.1); Creatinine Clr Calc Pharmacy 13.2 ml/min; Est GFR (African American) 19.6; Est GFR (Non-African American) 16.9; Potassium 5.4 mmol/L (3.5-5.1)
[2020-11-03] MEDS: Albuterol HFA 8 GM Inhaler (Combivent Respimat P&T Subs) INH SCH (07:36)
[2020-11-03] MEDS: Ipratropium HFA Inhaler (Combivent Respimat P&T Subs) INH SCH ×2 (07:36→19:53)
[2020-11-03] MEDS: DOCUSATE SODIUM 100 MG CAP PO SCH ×2 (09:11→20:15)
[2020-11-03] MEDS: APIXABAN 2.5 MG TAB PO SCH ×2 (09:11→20:18)
[2020-11-03] MEDS: MULTIVITAMIN TAB PO SCH (09:11)
[2020-11-03] MEDS: CALCIUM 600MG + VIT D 400 IU TAB PO SCH ×2 (09:11→20:15)
[2020-11-03] MEDS: ASCORBIC ACID 500 MG TAB PO SCH (09:13)
[2020-11-03] MEDS: amLODIPine BESYLATE 5 MG TAB PO SCH (09:14)
--- NOTE | 2020-11-03 09:57 | Orthopedic Progress Note ---
Date of Service November 03, 2020 Assessment & Plan (1) Osteoarthritis of left knee: Postop day 1 status post right total knee arthroplasty. PT OT protocols. Weightbearing as tolerated. Admission and Anticipated Discharge Date Admission Date: November 02, 2020 Subjective Postop day 1 Patient sitting up in bed awake and alert. States she had little sleep last night. Some pain issues which are now resolved. Denies shortness of breath, chest pain, lightheadedness. Pain control is adequate at this time. She is hoping to go home today. Physical Exam Physical Exam: Dressings are clean, dry, and intact. Calves are soft nontender. Neurovascular intact. Toes are mobile. She has good dorsiflexion plantarflexion of the right foot. Results & Data ([facility]) Vital Signs (Past 12 Hours) Vital Signs Temp Pulse Pulse Resp BP Pulse Ox 11/03/20 09:15 97/57 L 11/03/20 07:42 36.6 C 61 18 104/61 93 11/03/20 07:36 60 16 94 11/03/20 02:00 36.8 C 61 20 131/56 L 96 11/02/20 22:00 36.7 C 59 L 16 99/59 L 96 Laboratory Results Laboratory Results WBC 16.78 K/uL (4.8-10.8) H 11/03/20 06:37 RBC 2.59 M/uL (4.2-5.4) L 11/03/20 06:37 Hgb 8.2 g/dL (12.0-16.0) L 11/03/20 06:37 Hct 25.1 % (37-47) L 11/03/20 06:37 MCV 96.9 fL (80-100) 11/03/20 06:37 MCH 31.7 pg (25-34) 11/03/20 06:37 MCHC 32.7 g/dL (32-36) 11/03/20 06:37 RDW Std Deviation 53.3 fL (36.4-46.3) H 11/03/20 06:37 RDW Coeff of Julia 15.0 % (11.5-14.5) H 11/03/20 06:37 Plt Count 181 K/uL (130-400) 11/03/20 06:37 MPV 9.2 fL (7.4-10.4) 11/03/20 06:37 Immature Gran % (Auto) 0.2 % 10/12/20 13:17 Neut % (Auto) 71.9 % 10/12/20 13:17 Lymph % (Auto) 16.7 % 10/12/20 13:17 [place] % (Auto) 8.7 % 10/12/20 13:17 Eos % (Auto) 2.3 % 10/12/20 13:17 Baso % (Auto) 0.2 % 10/12/20 13:17 Neut # (Auto) 4.41 K/uL (1.4-6.5) 10/12/20 13:17 Lymph # (Auto) 1.02 K/uL (1.2-3.4) L 10/12/20 13:17 [place] # (Auto) 0.53 K/uL (0.11-0.59) 10/12/20 13:17 Eos # (Auto) 0.14 K/uL (0-0.5) 10/12/20 13:17 Baso # (Auto) 0.01 K/uL (0-0.2) 10/12/20 13:17 Immature Gran # (Auto) 0.01 K/uL (0.00-0.02) 10/12/20 13:17 PT 10.2 Seconds (9.0-12.0) 10/12/20 13:17 INR 1.0 (0.9-1.1) 10/12/20 13:17 APTT 25.6 Seconds (21.0-31.0) 10/12/20 13:17 PTT Ratio 1.0 10/12/20 13:17 Sodium 142 mmol/L (136-145) 11/03/20 06:37 Potassium 5.4 mmol/L (3.5-5.1) H 11/03/20 06:37 Chloride 115 mmol/L (98-107) H 11/03/20 06:37 Carbon Dioxide 20 mmol/L (21-32) L 11/03/20 06:37 Anion Gap 6.0 (3-11) 11/03/20 06:37 BUN 57 mg/dl (7-18) H 11/03/20 06:37 Creatinine 2.48 mg/dl (0.6-1.2) H 11/03/20 06:37 Est Cr Clr Drug Dosing 13.2 ml/min 11/03/20 06:37 Est GFR ( Amer) 19.6 11/03/20 06:37 Est GFR (Non-Af Amer) 16.9 11/03/20 06:37 BUN/Creatinine Ratio 23.1 (10-20) H 11/03/20 06:37 Glucose 145 mg/dl (70-99) H 11/03/20 06:37 Estimat Average Glucose 117 mg/dl 10/12/20 13:17 Hemoglobin A1c 5.7 % (4.5-5.6) H 10/12/20 13:17 Calcium 7.7 mg/dl (8.5-10.1) L 11/03/20 06:37 Albumin 3.2 gm/dl (3.4-5.0) L 10/12/20 13:17 Urine Color Yellow 10/12/20 13:17 Urine Appearance Clear (Clear) 10/12/20 13:17 Urine pH 5.0 (4.5-7.5) 10/12/20 13:17 Ur Specific [place] 1.017 (1.000-1.030) 10/12/20 13:17 Urine Protein Trace (Negative) H 10/12/20 13:17 Urine Glucose (UA) Negative (Negative) 10/12/20 13:17 Urine Ketones Negative (Negative) 10/12/20 13:17 Urine Blood 1+ (Negative) H 10/12/20 13:17 Urine Nitrite Negative (Negative) 10/12/20 13:17 Urine Bilirubin Negative (Negative) 10/12/20 13:17 Urine Urobilinogen Negative (Negative) 10/12/20 13:17 Ur Leukocyte Esterase Trace (Negative) H 10/12/20 13:17 Urine WBC (Auto) 1-5 /hpf (0-5) 10/12/20 13:17 Urine RBC (Auto) 0-4 /hpf (0-4) 10/12/20 13:17 U Hyaline Cast (Auto) 1-5 /lpf (0-5) 10/12/20 13:17 U Epithel Cells (Auto) 5-10 /lpf (0-5) H 10/12/20 13:17 Urine Bacteria (Auto) Negative (Negative) 02/24/21 13:17 Blood Type B Positive 10/12/20 13:17 Antibody Screen NEGATIVE 10/12/20 13:17 (1) Osteoarthritis of left knee Osteoarthritis type: primary Qualified Code(s): M17.12 - Unilateral primary osteoarthritis, left knee
[2020-11-03] MEDS: AMIODARONE 200 MG TAB PO SCH (10:48)
--- NOTE | 2020-11-03 16:24 | Orthopedic Progress Note ---
Date of Service November 03, 2020 Assessment & Plan (1) Osteoarthritis of left knee: POD #1 s/p left TKA PT/OT DVT prophylaxis--restart Eliquis today, TEDs WBAT LLE Hemovac kept in place. 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--would like to go home with home health. Will recheck Hgb and hemovac drainage over next 24 hours. Admission and Anticipated Discharge Date Admission Date: November 02, 2020 Supervising Physician Co-Signing Physician Notes Patient seen and examined. Overall doing well. She has been ambulating in the hallway today. Encouraged continued weightbearing, mobilization, and knee range of motion. Subjective Doing well. No pain in the left knee. Getting to the bathroom and back without any difficulties. Denies CP, SOB, LH, dizziness. Physical Exam Constitutional: WD/WN, vitals as above no acute distress Musculoskeletal: Knee: + surgical incision (left knee: Dressing C/D/I. LYLY in place. Silverlon in place.) and + surgical drain present (~725 cc over 24 hours); knee normal to inspection, no skin erythema, no ecchymosis and no crepitation with knee ROM Skin: no rashes, warm and dry Neurologic: normal touch/pain/proprioception Psychiatric: A+Ox3, euthymic affect Speech: normal rate/rhythm/volume of speech Results & Data ([facility]) Vital Signs (Past 12 Hours) Vital Signs Temp Pulse Pulse Pulse Resp BP BP 11/03/20 15:17 36.4 C L 55 L 18 101/59 L 11/03/20 11:17 36.5 C 53 L 18 92/59 L 11/03/20 10:45 57 L 106/55 L 11/03/20 09:15 97/57 L 11/03/20 07:42 36.6 C 61 18 104/61 11/03/20 07:36 60 16 Pulse Ox 11/03/20 15:17 95 11/03/20 11:17 95 11/03/20 10:45 11/03/20 09:15 11/03/20 07:42 93 11/03/20 07:36 94 Laboratory Results Laboratory Tests 11/03/20 11/03/20 06:37 06:37 Hgb 8.2 L Hct 25.1 L BUN 57 H Creatinine 2.48 H (1) Osteoarthritis of left knee Osteoarthritis type: primary Qualified Code(s): M17.12 - Unilateral primary osteoarthritis, left knee
[2020-11-03] MEDS: MECLIZINE HCL 25 MG TAB PO PRN (16:46)
--- NOTE | 2020-11-03 17:20 | Hospitalist Progress Note ---
Date of Service November 03, 2020 Assessment & Plan (1) Osteoarthritis of left knee: POD #1 total left knee arthroplasty Pain well controlled Hemovac still in place Ambulate per orthopedics Further management per orthopedics (2) SANJAY (acute kidney injury): Creatinine 2.48 BUN 57 Baseline creatinine 1.7 We will start patient on normal saline at 80 mL an hour secondary to advanced age and history of mitral regurgitation Check repeat labs in the morning (3) Chronic kidney disease, stage III (moderate): SANJAY as above Normal saline started Follow serial labs (4) Hyperkalemia: Potassium level yesterday was 4.4 and is now 5.4 today Most likely hemoconcentrated as patient has SANJAY and appears dry We will start normal saline and repeat labs in the morning (5) Iron deficiency anemia: POD #1 total left arthroplasty of knee EBL 20 mL Hemoglobin dropped to 8.2 Check repeat H&H at this time Not on ferrous sulfate at home Iron levels have been within normal limits since 2018-07-28 Follow CBC (6) COPD (chronic obstructive pulmonary disease): No exacerbation on examination On Advair and Combivent Respimat at home Continue Brio Ellipta (ICS/LABA) while inpatient Change albuterol HFA (ANATOLIY) to as needed instead of scheduled No PFTs available Target SaO2 at 88 to 92% (7) Dyslipidemia: Continue atorvastatin Outpatient management (8) Mitral regurgitation: Continue to monitor fluid status and blood pressure No chest pain or tightness No cardiac or respiratory complaints (9) Hypertension: Continue amlodipine Hemodynamically stable (10) Paroxysmal atrial fibrillation: Continue amiodarone p.o. Continue apixaban per orthopedics Currently rate controlled in the 50s No awareness of arrhythmias Thank you for including us in the care of this patient. We will sign off at this time. Please feel free to reconsult as needed. Admission and Anticipated Discharge Date Admission Date: November 02, 2020 Subjective Attending: Dr. Whitlock Patient seen and examined at bedside chair. She was eating lunch. She was having no difficulty with dysphagia or any other problems. Pain is well controlled to her left knee. She has no fever or chills. She has no chest pain or tightness. She has no other acute complaints at this time. Review of Systems Review of Systems: All systems reviewed & are unremarkable except as noted in Subjective Physical Exam Physical Exam: GENERAL : No acute distress EYES: No icterus, gaze conjugate NOSE: No evidence of epistaxis MOUTH: No lesions or candidiasis NECK: Supple LUNGS: CTA B/L, no wheezes, rales or rhonchi HEART: Regular, rate controlled ABDOMEN: Soft, NT, ND, BS Present EXTREMITIES: No LE edema, pedal pulses intact. Hemovac in place. Dressing dry and intact at left knee. NEURO: A&OX3 Results & Data Results & Data ([facility]) Vital Signs (Past 12 Hours) Vital Signs Temp Pulse Pulse Pulse Resp BP BP 11/03/20 15:17 36.4 C L 55 L 18 101/59 L 11/03/20 11:17 36.5 C 53 L 18 92/59 L 11/03/20 10:45 57 L 106/55 L 11/03/20 09:15 97/57 L 11/03/20 07:42 36.6 C 61 18 104/61 11/03/20 07:36 60 16 Pulse Ox 11/03/20 15:17 95 11/03/20 11:17 95 11/03/20 10:45 11/03/20 09:15 11/03/20 07:42 93 11/03/20 07:36 94 Laboratory Results 11/03/20 06:37 11/03/20 06:37 Diagnostic Findings XR knee LT 1 or 2V routine CLINICAL HISTORY: Postoperative evaluation. COMPARISON: Left knee radiographs November 02, 2020 at 8:57 AM. FINDINGS: Alignment of the left knee arthroplasty is anatomic. There is no periprosthetic fracture or unexpected radiopaque foreign body. There are skin sri. Surgical drains are in place. IMPRESSION: Expected findings following total left knee arthroplasty. ACT 112: Negative or not required by law. Electronically signed by: Fahad Ceballos M.D. 11/02/2020 11:49 AM PG Care Time/CCT Total # of Minutes Spent Total Time Spent with Patient: Total time spent is greater than 50% in coordination of care (as documented) at patient's floor/unit and/or counseling patient: Coding Level of Care Code 75088 Subseq Hosp Care Lvl 2 Diagnoses Osteoarthritis of left knee M17.12 Osteoarthritis type: primary SANJAY (acute kidney injury) N17.9 Chronic kidney disease, stage III (moderate) N18.3 Hyperkalemia E87.5 Iron deficiency anemia D50.9 COPD (chronic obstructive pulmonary disease) J44.9 COPD type: unspecified COPD Dyslipidemia E78.5 Mitral regurgitation I34.0 Hypertension I10 Hypertension type: essential hypertension Paroxysmal atrial fibrillation I48.0 (1) Osteoarthritis of left knee Osteoarthritis type: primary Qualified Code(s): M17.12 - Unilateral primary osteoarthritis, left knee (2) COPD (chronic obstructive pulmonary disease) COPD type: unspecified COPD Qualified Code(s): J44.9 - Chronic obstructive pulmonary disease, unspecified (3) Hypertension Hypertension type: essential hypertension Qualified Code(s): I10 - Essential (primary) hypertension
[2020-11-03] MEDS: SODIUM CHLORIDE 0.9% 1000ML 1,000 ML IV SCH (17:54)
[2020-11-03 18:25] LABS: Hematocrit (blood only) 22.7 % (37-47); Hemoglobin 7.5 g/dL (12.0-16.0)
[2020-11-03] MEDS ORDERED: SODIUM CHLORIDE 0.9% 250 ML IV PRN ×2 (18:39→18:55)
[2020-11-03] MEDS ORDERED: ACETAMINOPHEN 325 MG TAB PO STA (18:39)
[2020-11-03] MEDS: ALBUTEROL HFA 8 GM INHALER INH SCH (19:54)
[2020-11-03] MEDS: FLUTICASONE/VILANTEROL 100/25MCG 14 PUFFS/INHALER INH SCH (20:14)
[2020-11-03] MEDS: SENNA 8.6 MG TAB PO SCH (20:17)
[2020-11-03] MEDS: ATORVASTATIN 10 MG TAB PO SCH (20:18)
[2020-11-04] MEDS: MECLIZINE HCL 25 MG TAB PO PRN ×2 (02:02→05:45)
[2020-11-04] MEDS: oxyCODONE HCL IR 5 MG TAB (IMMEDIATE RELEASE) PO PRN ×2 (03:29→19:34)
[2020-11-04] MEDS: ACETAMINOPHEN 500 MG TAB PO SCH ×3 (05:40→21:24)
[2020-11-04 06:49] LABS: Basophils # (auto) 0.02 K/uL (0-0.2); Basophils % (auto) 0.2 %; Eosinophils # (auto) 0.07 K/uL (0-0.5); Eosinophils % (auto) 0.6 %; Hematocrit (blood only) 26.5 % (37-47); Hemoglobin 8.7 g/dL (12.0-16.0); Immature Granulocytes # (auto) 0.03 K/uL (0.00-0.02); Immature Granulocytes % (auto) 0.3 %; Lymphocytes # (auto) 0.73 K/uL (1.2-3.4); Lymphocytes % (auto) 6.4 %; Mean Corpuscular Hemoglobin 31.9 pg (25-34); Mean Corpuscular Hgb Conc 32.8 g/dL (32-36); Mean Corpuscular Volume 97.1 fL (80-100); Mean Platelet Volume 9.4 fL (7.4-10.4); Monocytes # (auto) 1.39 K/uL (0.11-0.59); Monocytes % (auto) 12.1 %; Neutrophils # (auto) 9.21 K/uL (1.4-6.5); Neutrophils % (auto) 80.4 %; Platelet Count 152 K/uL (130-400); RDW Coefficient of Variation 15.5 % (11.5-14.5); RDW Standard Deviation 55.2 fL (36.4-46.3); Red Blood Count 2.73 M/uL (4.2-5.4); White Blood Count 11.45 K/uL (4.8-10.8)
[2020-11-04 07:23] LABS: BUN Creatinine Ratio 24.5 (10-20); Calcium 7.3 mg/dl (8.5-10.1); Creatinine Clr Calc Pharmacy 12.6 ml/min; Est GFR (African American) 18.4; Est GFR (Non-African American) 15.9
[2020-11-04] MEDS: SODIUM CHLORIDE 0.9% 1000ML 1,000 ML IV SCH ×2 (07:34→13:01)
[2020-11-04] MEDS: Ipratropium HFA Inhaler (Combivent Respimat P&T Subs) INH SCH ×2 (07:48→19:39)
[2020-11-04] MEDS: ALBUTEROL HFA 8 GM INHALER INH SCH ×2 (07:49→19:39)
[2020-11-04] MEDS: MULTIVITAMIN TAB PO SCH (08:32)
[2020-11-04] MEDS: APIXABAN 2.5 MG TAB PO SCH ×2 (08:32→21:25)
[2020-11-04] MEDS: DOCUSATE SODIUM 100 MG CAP PO SCH ×2 (08:33→21:23)
[2020-11-04] MEDS: CALCIUM 600MG + VIT D 400 IU TAB PO SCH ×2 (08:33→21:23)
[2020-11-04] MEDS: ASCORBIC ACID 500 MG TAB PO SCH (08:33)
[2020-11-04] MEDS: amLODIPine BESYLATE 5 MG TAB PO SCH (08:39)
--- NOTE | 2020-11-04 10:44 | Orthopedic Progress Note ---
Date of Service November 04, 2020 Assessment & Plan (1) Osteoarthritis of left knee: POD #2 s/p left TKA PT/OT DVT prophylaxis--restart Natalie laughlin, Rodrigo WBAT LLE 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--probable SNF upon d/c. Awaiting improvement in creatinine prior to d/c. Admission and Anticipated Discharge Date Admission Date: November 02, 2020 Subjective States the knee is generally feeling better this AM. Pain in the knee last night. States she is planning on going to a SNF upon d/c. Denies CP, SOB, LH. Physical Exam Constitutional: WD/WN, vitals as above no acute distress ENMT: external ear and nose normal, oropharynx normal Neck: trachea midline, no thyromegaly Respiratory: normal respiratory effort, lungs clear to auscultation Cardiovascular: Rate/Rhythm: + irregularly irregular Gastrointestinal (Abdomen): normal bowel sounds, soft, nontender, no hepatosplenomegaly Musculoskeletal: Knee: + surgical incision (left knee: Dressing C/D/I. LYLY in place. Silver[place] in place.); knee normal to inspection, no skin erythema, no ecchymosis, no surgical drain present (hemovac removed) and no crepitation with knee ROM Skin: no rashes, warm and dry Neurologic: normal touch/pain/proprioception Psychiatric: A+Ox3, euthymic affect Speech: normal rate/rhythm/volume of speech Lymphatic: no cervical or axillary lymphadenopathy Results & Data ([facility]) Vital Signs (Past 12 Hours) Vital Signs Temp Pulse Pulse Pulse Resp BP BP 11/04/20 07:49 63 18 11/04/20 06:33 36.6 C 65 16 115/50 L 11/04/20 01:36 136/64 11/03/20 23:24 36.6 C 57 L 16 103/61 11/03/20 23:05 36.6 C 58 L 16 99/55 L Pulse Ox 11/04/20 07:49 95 11/04/20 06:33 95 11/04/20 01:36 92 11/03/20 23:24 93 11/03/20 23:05 92 Laboratory Results Laboratory Tests 11/04/20 11/04/20 06:29 06:29 Hgb 8.7 L Hct 26.5 L BUN 64 H Creatinine 2.61 H (1) Osteoarthritis of left knee Osteoarthritis type: primary Qualified Code(s): M17.12 - Unilateral primary osteoarthritis, left knee
[2020-11-04] MEDS: AMIODARONE 200 MG TAB PO SCH (11:51)
[2020-11-04] MEDS: ONDANSETRON INJ 2 MG/ML 2 ML VIAL IV PRN (19:26)
[2020-11-04] MEDS: FLUTICASONE/VILANTEROL 100/25MCG 14 PUFFS/INHALER INH SCH (21:22)
[2020-11-04] MEDS: SENNA 8.6 MG TAB PO SCH (21:25)
[2020-11-04] MEDS: ATORVASTATIN 10 MG TAB PO SCH (21:25)
--- NOTE | 2020-11-04 23:17 | Hospitalist Progress Note ---
Date of Service November 04, 2020 Assessment & Plan (1) Osteoarthritis of left knee: POD #2 total left knee arthroplasty Pain well controlled Ambulate per orthopedics Further management per orthopedics will give Miralax PRN, c/o constipation (2) SANJAY (acute kidney injury): Creatinine up a little further to 2.6, making urine Baseline creatinine 1.7 continue normal saline at 80 mL an hour secondary to advanced age and history of mitral regurgitation if Cr is not improved tomorrow then stop fluids as it is more likely mild ATN Check repeat labs in the morning (3) Chronic kidney disease, stage III (moderate): SANJAY as above Normal saline Follow serial labs (4) Hyperkalemia: Potassium is 5.0 today Most likely hemoconcentrated as patient has SANJAY and appears dry continue fluids (5) Iron deficiency anemia: POD #2 total left arthroplasty of knee EBL 20 mL Hemoglobin dropped to < 8 on 3, transfused 2 units, Hb up to 8.7 Not on ferrous sulfate at home Iron levels have been within normal limits since 2018-07-28 Follow CBC (6) COPD (chronic obstructive pulmonary disease): No exacerbation on examination On Advair and Combivent Respimat at home Continue Brio Ellipta (ICS/LABA) while inpatient Change albuterol HFA (ANATOLIY) to as needed instead of scheduled No PFTs available Target SaO2 at 88 to 92% (7) Dyslipidemia: Continue atorvastatin Outpatient management (8) Mitral regurgitation: Continue to monitor fluid status and blood pressure No chest pain or tightness No cardiac or respiratory complaints (9) Hypertension: Continue amlodipine Hemodynamically stable (10) Paroxysmal atrial fibrillation: Continue amiodarone p.o. Continue apixaban per orthopedics Currently rate controlled in the 50s No awareness of arrhythmias (11) Acute blood loss as cause of postoperative anemia: transfused two units on 11/03 Hb up to 8.7 today Admission and Anticipated Discharge Date Admission Date: November 04, 2020 Subjective patient sitting up in a chair, she says her pain is well controlled she is eating and drinking a little, no great no chest pain, no dyspnea, no nausea, she has not had a BM reviewed labs, Hb up to 8.7, WBC is 11, Cr is 2.6, K is 5.0, calcium 7.3 Review of Systems Review of Systems: All systems reviewed & are unremarkable except as noted in Subjective Respiratory: no cough and no dyspnea Cardiovascular: no chest pain and no edema Gastrointestinal: + constipation; no abdominal pain, no nausea, no vomiting and no diarrhea/loose stools Musculoskeletal: + joint pain (knee) Physical Exam Constitutional: WD/WN, vitals as above Neck: trachea midline, no thyromegaly Respiratory: normal respiratory effort, lungs clear to auscultation Cardiovascular: Rate/Rhythm: regular rate and regular rhythm Heart Sounds: normal S1, normal S2 and + murmur (systolic, over apex) Vessels: no JVD Extremities: normal capillary refill; no edema Gastrointestinal (Abdomen): normal bowel sounds, soft, nontender, no hepatosplenomegaly Musculoskeletal: Head/Neck/Chest: normocephalic, head atraumatic and neck supple Extremities: strength 5/5 throughout; no cyanosis, no clubbing and no petechiae Skin: no rashes, warm and dry Neurologic: patellar DTR's 2+ bilat, sensation intact and PERRL, EOMI, accommodation nl, no face palsy, no dysarthria Psychiatric: A+Ox3, euthymic affect Lymphatic: no cervical or axillary lymphadenopathy Results & Data Results & Data ([facility]) Vital Signs (Past 12 Hours) Vital Signs Temp Pulse Pulse Resp BP Pulse Ox 11/04/20 22:36 36.8 C 65 18 121/56 L 93 11/04/20 19:41 65 16 95 11/04/20 15:00 36.3 C L 61 16 114/67 91 11/04/20 11:52 64 135/64 93 Laboratory Results Laboratory Results - last 24 hr 11/02/20 11/04/20 11/04/20 05:46 06:29 06:29 WBC 11.45 H RBC 2.73 L Hgb 8.7 L Hct 26.5 L MCV 97.1 MCH 31.9 MCHC 32.8 RDW Std Deviation 55.2 H RDW Coeff of Julia 15.5 H Plt Count 152 MPV 9.4 Immature Gran % (Auto) 0.3 Neut % (Auto) 80.4 Lymph % (Auto) 6.4 [place] % (Auto) 12.1 Eos % (Auto) 0.6 Baso % (Auto) 0.2 Neut # (Auto) 9.21 H Lymph # (Auto) 0.73 L [place] # (Auto) 1.39 H Eos # (Auto) 0.07 Baso # (Auto) 0.02 Immature Gran # (Auto) 0.03 H Sodium 141 Potassium 5.0 Chloride 115 H Carbon Dioxide 21 Anion Gap 5.0 BUN 64 H Creatinine 2.61 H Est Cr Clr Drug Dosing 12.6 Est GFR ( Amer) 18.4 Est GFR (Non-Af Amer) 15.9 BUN/Creatinine Ratio 24.5 H Glucose 107 H Calcium 7.3 L Crossmatch See Detail Medications Administered Current Inpatient Medications Acetaminophen (Acetaminophen 500 Mg Tab) 1,000 mg PO Q8 LUÍS Stop: 12/02/20 13:59 Last Admin: 11/04/20 21:24 Dose: 1,000 mg Documented by: Albuterol (Albuterol Hfa 8 Gm Inhaler) 1 puffs INH BIDR LUÍS Stop: 12/03/20 18:59 Last Admin: 11/04/20 19:39 Dose: 1 puffs Documented by: Amiodarone HCl (Amiodarone 200 Mg Tab) 200 mg PO QDL LUÍS Stop: 12/03/20 11:29 Last Admin: 11/04/20 11:51 Dose: 200 mg Documented by: Amlodipine Besylate (Amlodipine Besylate 5 Mg Tab) 2.5 mg PO DAILY LUÍS Stop: 12/03/20 08:59 Last Admin: 11/04/20 08:39 Dose: 2.5 mg Documented by: Apixaban (Apixaban 2.5 Mg Tab) 2.5 mg PO BID LUÍS Stop: 12/03/20 08:59 Last Admin: 11/04/20 21:25 Dose: 2.5 mg Documented by: Ascorbic Acid (Ascorbic Acid 500 Mg Tab) 500 mg PO DAILY LUÍS Stop: 12/03/20 08:59 Last Admin: 11/04/20 08:33 Dose: 500 mg Documented by: Atorvastatin Calcium (Atorvastatin 10 Mg Tab) 10 mg PO QPM LUÍS Stop: 12/02/20 20:59 Last Admin: 11/04/20 21:25 Dose: 10 mg Documented by: Bisacodyl (Bisacodyl 10 Mg Supp) 10 mg [place] DAILY PRN PRN Reason: Constipation Stop: 12/02/20 11:24 Diphenhydramine HCl (Diphenhydramine Capsule 25 Mg Cap) 25 mg PO Q8H PRN PRN Reason: Itching Stop: 12/02/20 11:24 Docusate Sodium (Docusate Sodium 100 Mg Cap) 100 mg PO BID [facility] Stop: 12/02/20 20:59 Last Admin: 11/04/20 21:23 Dose: 100 mg Documented by: Fluticasone/Vilanterol (Fluticasone/Vilanterol 100/25mcg 14 Puffs/Inhaler) 1 puffs INH QPM [facility]; Protocol Stop: 12/02/20 20:59 Last Admin: 11/04/20 21:22 Dose: 1 puffs Documented by: Hydromorphone HCl (Hydromorphone Inj 0.5 Mg/0.5 Ml Syr) 0.5 mg IV Q2H PRN PRN Reason: Pain or Pre PT Stop: 11/16/20 11:24 Sodium Chloride (Nss 1000ml) 1,000 mls @ 80 mls/hr IV .[id number] [facility] Stop: 12/03/20 17:29 Last Admin: 11/04/20 13:01 Dose: 80 mls/hr Documented by: Ipratropium [place] (Ipratropium Hfa Inhaler (Combivent Respimat P&T Subs)) 1 puffs INH BIDR [facility] Stop: 12/02/20 18:59 Last Admin: 11/04/20 19:39 Dose: 1 puffs Documented by: Magnesium Hydroxide (Magnesium Hydroxide Susp 30 Ml Udc) 30 ml PO Q6H PRN PRN Reason: Constipation Stop: 12/02/20 11:24 Meclizine HCl (Meclizine Hcl 25 Mg Tab) 25 mg PO TID PRN PRN Reason: dizziness Stop: 12/02/20 11:33 Last Admin: 11/04/20 05:45 Dose: 25 mg Documented by: Metoclopramide HCl (Metoclopramide Hcl Inj 5 Mg/Ml 2 Ml Vial) 10 mg IV Q6H PRN PRN Reason: Nausea And Vomiting Stop: 12/02/20 11:24 Multivitamins (Multivitamin Tab) 1 tab PO QAM [facility] Stop: 12/03/20 08:59 Last Admin: 11/04/20 08:32 Dose: 1 tab Documented by: Multivitamins/Minerals (Calcium 600mg + Vit D 400 Iu Tab) 1 tab PO BID [facility] Stop: 12/02/20 20:59 Last Admin: 11/04/20 21:23 Dose: 1 tab Documented by: Naloxone HCl (Naloxone Hcl 0.4 Mg/1 Ml Vial/Carp) 0.1 mg IV Q5M PRN PRN Reason: Oversedation/Resp Depression Stop: 12/02/20 11:24 Ondansetron HCl (Ondansetron 8mg Od Tab) 8 mg PO Q8H PRN PRN Reason: Nausea Stop: 12/02/20 11:33 Last Admin: 11/03/20 16:46 Dose: 8 mg Documented by: Ondansetron HCl (Ondansetron Inj 2 Mg/Ml 2 Ml Vial) 4 mg IV Q6H PRN PRN Reason: Nausea And Vomiting Stop: 12/02/20 11:24 Last Admin: 11/04/20 19:26 Dose: 4 mg Documented by: Oxycodone HCl (Oxycodone Hcl Ir 5 Mg Tab (Immediate Release)) 5 - 10 mg PO Q4H PRN PRN Reason: Pain or Pre PT Stop: 11/16/20 11:24 Last Admin: 11/04/20 19:34 Dose: 5 mg Documented by: Sennosides (Senna 8.6 Mg Tab) 17.2 mg PO HS LUÍS Stop: 12/02/20 20:59 Last Admin: 11/04/20 21:25 Dose: 17.2 mg Documented by: PG Care Time/CCT Total # of Minutes Spent Total Time Spent with Patient: Total time spent is greater than 50% in coordination of care (as documented) at patient's floor/unit and/or counseling patient: Coding Level of Care Code 50819 Subseq Hosp Care Lvl 3 Diagnoses Osteoarthritis of left knee M17.12 Osteoarthritis type: primary SANJAY (acute kidney injury) N17.9 Chronic kidney disease, stage III (moderate) N18.3 Hyperkalemia E87.5 Iron deficiency anemia D50.9 COPD (chronic obstructive pulmonary disease) J44.9 COPD type: unspecified COPD Dyslipidemia E78.5 Mitral regurgitation I34.0 Hypertension I10 Hypertension type: essential hypertension Paroxysmal atrial fibrillation I48.0 Acute blood loss as cause of postoperative anemia D62 (1) Osteoarthritis of left knee Osteoarthritis type: primary Qualified Code(s): M17.12 - Unilateral primary osteoarthritis, left knee (2) COPD (chronic obstructive pulmonary disease) COPD type: unspecified COPD Qualified Code(s): J44.9 - Chronic obstructive pulmonary disease, unspecified (3) Hypertension Hypertension type: essential hypertension Qualified Code(s): I10 - Essential (primary) hypertension
[2020-11-05] MEDS: SODIUM CHLORIDE 0.9% 1000ML 1,000 ML IV SCH (00:15)
[2020-11-05] MEDS: ACETAMINOPHEN 500 MG TAB PO SCH ×3 (05:32→20:26)
[2020-11-05 06:38] LABS: Basophils # (auto) 0.01 K/uL (0-0.2); Basophils % (auto) 0.1 %; Eosinophils # (auto) 0.19 K/uL (0-0.5); Eosinophils % (auto) 2.2 %; Hematocrit (blood only) 25.1 % (37-47); Immature Granulocytes # (auto) 0.03 K/uL (0.00-0.02); Immature Granulocytes % (auto) 0.3 %; Lymphocytes # (auto) 0.66 K/uL (1.2-3.4); Lymphocytes % (auto) 7.5 %; Mean Corpuscular Hgb Conc 31.9 g/dL (32-36); Mean Corpuscular Volume 97.3 fL (80-100); Mean Platelet Volume 9.3 fL (7.4-10.4); Monocytes # (auto) 1.13 K/uL (0.11-0.59); Monocytes % (auto) 12.9 %; Neutrophils # (auto) 6.73 K/uL (1.4-6.5); Platelet Count 142 K/uL (130-400); RDW Coefficient of Variation 15.6 % (11.5-14.5); RDW Standard Deviation 55.1 fL (36.4-46.3); Red Blood Count 2.58 M/uL (4.2-5.4); White Blood Count 8.75 K/uL (4.8-10.8)
[2020-11-05 06:57] LABS: BUN Creatinine Ratio 25.9 (10-20); Creatinine Clr Calc Pharmacy 15.8 ml/min; Est GFR (African American) 24.3; Potassium 4.7 mmol/L (3.5-5.1)
[2020-11-05] MEDS: oxyCODONE HCL IR 5 MG TAB (IMMEDIATE RELEASE) PO PRN ×2 (07:23→21:54)
[2020-11-05] MEDS: ALBUTEROL HFA 8 GM INHALER INH SCH ×2 (07:52→20:00)
[2020-11-05] MEDS: Ipratropium HFA Inhaler (Combivent Respimat P&T Subs) INH SCH ×2 (07:52→20:00)
[2020-11-05] MEDS: amLODIPine BESYLATE 5 MG TAB PO SCH (08:39)
[2020-11-05] MEDS: MULTIVITAMIN TAB PO SCH (08:40)
[2020-11-05] MEDS: DOCUSATE SODIUM 100 MG CAP PO SCH ×2 (08:40→20:25)
[2020-11-05] MEDS: CALCIUM 600MG + VIT D 400 IU TAB PO SCH ×2 (08:40→20:24)
[2020-11-05] MEDS: ASCORBIC ACID 500 MG TAB PO SCH (08:41)
[2020-11-05] MEDS: APIXABAN 2.5 MG TAB PO SCH ×2 (09:59→20:23)
--- NOTE | 2020-11-05 11:02 | Orthopedic Progress Note ---
Date of Service November 05, 2020 Assessment & Plan (1) Status post left knee replacement: Admission and Anticipated Discharge Date Admission Date: 85 yo female stable POD #3 s/p left TKA, postop anemia(chronic) Hgb now 8.0, constipation, CKD BUN and Cr improved 1. Med management 2. DVT prophylaxis- Eliquis, SCDs 3. PT/OT 4. 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- SNF denied due to pt lack of participation with PT Subjective Pt resting in chair, trouble with bowels, otherwise no complaints Physical Exam Physical Exam: Toes mobile, N/V/I, dressing in place Results & Data ([facility]) Vital Signs (Past 12 Hours) Vital Signs Temp Pulse Resp BP Pulse Ox 11/05/20 07:55 64 18 90 11/05/20 07:06 36.5 C 65 18 146/64 H 91 Laboratory Results 11/05/20 11/05/20 Range/Units 06:09 06:09 WBC 8.75 (4.8-10.8) K/uL RBC 2.58 L (4.2-5.4) M/uL Hgb 8.0 L (12.0-16.0) g/dL Hct 25.1 L (37-47) % MCV 97.3 (80-100) fL MCH 31.0 (25-34) pg MCHC 31.9 L (32-36) g/dL RDW Std Deviation 55.1 H (36.4-46.3) fL RDW Coeff of [place] 15.6 H (11.5-14.5) % Plt Count 142 (130-400) K/uL MPV 9.3 (7.4-10.4) fL Immature Gran % (Auto) 0.3 % Neut % (Auto) 77.0 % Lymph % (Auto) 7.5 % [place] % (Auto) 12.9 % Eos % (Auto) 2.2 % Baso % (Auto) 0.1 % Neut # (Auto) 6.73 H (1.4-6.5) K/uL Lymph # (Auto) 0.66 L (1.2-3.4) K/uL [place] # (Auto) 1.13 H (0.11-0.59) K/uL Eos # (Auto) 0.19 (0-0.5) K/uL Baso # (Auto) 0.01 (0-0.2) K/uL Immature Gran # (Auto) 0.03 H (0.00-0.02) K/uL Sodium 141 (136-145) mmol/L Potassium 4.7 (3.5-5.1) mmol/L Chloride 115 H (98-107) mmol/L Carbon Dioxide 20 L (21-32) mmol/L Anion Gap 6.0 (3-11) BUN 54 H (7-18) mg/dl Creatinine 2.07 H D (0.6-1.2) mg/dl Est Cr Clr Drug Dosing 15.8 ml/min Est GFR ( Amer) 24.3 Est GFR (Non-Af Amer) 21.0 BUN/Creatinine Ratio 25.9 H (10-20) Glucose 97 (70-99) mg/dl Calcium 8.0 L (8.5-10.1) mg/dl
[2020-11-05] MEDS: AMIODARONE 200 MG TAB PO SCH (11:33)
--- NOTE | 2020-11-05 14:11 | Hospitalist Progress Note ---
Date of Service November 05, 2020 Assessment & Plan (1) SANJAY (acute kidney injury): Creatinine down to 2.0 from 2.6, making more urine today oral intake improving Baseline creatinine 1.7 continue normal saline but at 50 mL an hour and stop this evening at 7pm Check repeat labs in the morning, anticipate they should be close to baseline medicine will sign off for now, will check labs tomorrow, call if there are any issues (2) Acute blood loss as cause of postoperative anemia: transfused two units on 3 Hb down a little at 8.0 from 8.7 no signs of further bleeding, check H/H tomorrow (3) Hyperkalemia: Potassium is 4.7 today Most likely hemoconcentrated as patient has SANJAY and appears dry continue fluids but stop this evening (4) Osteoarthritis of left knee: POD #3 total left knee arthroplasty Pain well controlled Ambulate per orthopedics Further management per orthopedics will give Miralax PRN, c/o constipation she was able to participate with therapy today, no dizziness anticipate she could go to rehab Saturday, need to follow labs another day (5) COPD (chronic obstructive pulmonary disease): No exacerbation on examination On Advair and Combivent Respimat at home Continue Brio Ellipta (ICS/LABA) while inpatient Change albuterol HFA (ANATOLIY) to as needed instead of scheduled No PFTs available Target SaO2 at 88 to 92% (6) Hypertension: Continue amlodipine Hemodynamically stable (7) Paroxysmal atrial fibrillation: Continue rhythm control strategy with amiodarone 200 mg p.o. daily. TSH normal in January 2020. 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 Preop labs with creatinine 1.67 at baseline. Avoid further NSAIDs (9) Iron deficiency anemia: POD #3 total left arthroplasty of knee EBL 20 mL Hemoglobin dropped to < 8 on 318, transfused 2 units, Hb is 8.0 today Not on ferrous sulfate at home Iron levels have been within normal limits since 2018-07-28 Follow CBC (10) Mitral regurgitation: Continue to monitor fluid status and blood pressure No chest pain or tightness No cardiac or respiratory complaints Admission and Anticipated Discharge Date Admission Date: November 04, 2020 Subjective patient doing a little better today, participated with therapy, no dizziness she is still not moving bowels, trying Miralax and butter/prune juice no dyspnea, no chest pain, no fever/chills, no nausea she is making urine today, several times reviewed labs, Hb dropped to 8.0 from 8.7 but no signs of blood loss, repeat tomorrow Cr improved to 2.07, reduce fluids to 50mL/hr and stop this evening oral intake is better Review of Systems Review of Systems: All systems reviewed & are unremarkable except as noted in Subjective Constitutional: + weakness; no fever, no chills, no sweats and no fatigue Respiratory: no cough and no dyspnea Cardiovascular: no chest pain and no edema Musculoskeletal: + joint pain (left knee); no back pain Physical Exam Constitutional: WD/WN, vitals as above Neck: trachea midline, no thyromegaly Respiratory: normal respiratory effort, lungs clear to auscultation Cardiovascular: Rate/Rhythm: regular rate and regular rhythm Heart Sounds: normal S1, normal S2 and + murmur (systolic, over apex) Vessels: no JVD Extremities: normal capillary refill; no edema Gastrointestinal (Abdomen): normal bowel sounds, soft, nontender, no hepatosplenomegaly Musculoskeletal: Head/Neck/Chest: normocephalic, head atraumatic and neck supple Extremities: strength 5/5 throughout; no cyanosis, no clubbing and no petechiae Skin: no rashes, warm and dry Neurologic: patellar DTR's 2+ bilat, sensation intact and PERRL, EOMI, accommodation nl, no face palsy, no dysarthria Psychiatric: A+Ox3, euthymic affect Lymphatic: no cervical or axillary lymphadenopathy Results & Data Results & Data ([facility]) Vital Signs (Past 12 Hours) Vital Signs Temp Pulse Resp BP Pulse Ox 11/05/20 07:55 64 18 90 11/05/20 07:06 36.5 C 65 18 146/64 H 91 Laboratory Results Laboratory Results - last 24 hr 11/05/20 11/05/20 06:09 06:09 WBC 8.75 RBC 2.58 L Hgb 8.0 L Hct 25.1 L MCV 97.3 MCH 31.0 MCHC 31.9 L RDW Std Deviation 55.1 H RDW Coeff of [place] 15.6 H Plt Count 142 MPV 9.3 Immature Gran % (Auto) 0.3 Neut % (Auto) 77.0 Lymph % (Auto) 7.5 [place] % (Auto) 12.9 Eos % (Auto) 2.2 Baso % (Auto) 0.1 Neut # (Auto) 6.73 H Lymph # (Auto) 0.66 L [place] # (Auto) 1.13 H Eos # (Auto) 0.19 Baso # (Auto) 0.01 Immature Gran # (Auto) 0.03 H Sodium 141 Potassium 4.7 Chloride 115 H Carbon Dioxide 20 L Anion Gap 6.0 BUN 54 H Creatinine 2.07 H D Est Cr Clr Drug Dosing 15.8 Est GFR ( Amer) 24.3 Est GFR (Non-Af Amer) 21.0 BUN/Creatinine Ratio 25.9 H Glucose 97 Calcium 8.0 L Medications Administered Current Inpatient Medications Acetaminophen (Acetaminophen 500 Mg Tab) 1,000 mg PO Q8 LUÍS Stop: 12/02/20 13:59 Last Admin: 11/05/20 13:20 Dose: Not Given Documented by: Albuterol (Albuterol Hfa 8 Gm Inhaler) 1 puffs INH BIDR LUÍS Stop: 12/03/20 18:59 Last Admin: 11/05/20 07:52 Dose: 1 puffs Documented by: Amiodarone HCl (Amiodarone 200 Mg Tab) 200 mg PO QDL LUÍS Stop: 12/03/20 11:29 Last Admin: 11/05/20 11:33 Dose: 200 mg Documented by: Amlodipine Besylate (Amlodipine Besylate 5 Mg Tab) 2.5 mg PO DAILY LUÍS Stop: 12/03/20 08:59 Last Admin: 11/05/20 08:39 Dose: 2.5 mg Documented by: Apixaban (Apixaban 2.5 Mg Tab) 2.5 mg PO BID LUÍS Stop: 12/03/20 08:59 Last Admin: 11/05/20 09:59 Dose: 2.5 mg Documented by: Ascorbic Acid (Ascorbic Acid 500 Mg Tab) 500 mg PO DAILY LUÍS Stop: 12/03/20 08:59 Last Admin: 11/05/20 08:41 Dose: 500 mg Documented by: Atorvastatin Calcium (Atorvastatin 10 Mg Tab) 10 mg PO QPM LUÍS Stop: 12/02/20 20:59 Last Admin: 11/04/20 21:25 Dose: 10 mg Documented by: Bisacodyl (Bisacodyl 10 Mg Supp) 10 mg [place] DAILY PRN PRN Reason: Constipation Stop: 12/02/20 11:24 Diphenhydramine HCl (Diphenhydramine Capsule 25 Mg Cap) 25 mg PO Q8H PRN PRN Reason: Itching Stop: 12/02/20 11:24 Docusate Sodium (Docusate Sodium 100 Mg Cap) 100 mg PO BID LUÍS Stop: 12/02/20 20:59 Last Admin: 11/05/20 08:40 Dose: 100 mg Documented by: Fluticasone/Vilanterol (Fluticasone/Vilanterol 100/25mcg 14 Puffs/Inhaler) 1 puffs INH QPM [facility]; Protocol Stop: 12/02/20 20:59 Last Admin: 11/04/20 21:22 Dose: 1 puffs Documented by: Hydromorphone HCl (Hydromorphone Inj 0.5 Mg/0.5 Ml Syr) 0.5 mg IV Q2H PRN PRN Reason: Pain or Pre PT Stop: 11/16/20 11:24 Sodium Chloride (Nss 1000ml) 1,000 mls @ 50 mls/hr IV .Q20H LUÍS Stop: 11/05/20 19:00 Last Infusion: 11/05/20 08:38 Dose: 50 mls/hr Documented by: Ipratropium [place] (Ipratropium Hfa Inhaler (Combivent Respimat P&T Subs)) 1 puffs INH BIDR LUÍS Stop: 12/02/20 18:59 Last Admin: 11/05/20 07:52 Dose: 1 puffs Documented by: Magnesium Hydroxide (Magnesium Hydroxide Susp 30 Ml Udc) 30 ml PO Q6H PRN PRN Reason: Constipation Stop: 12/02/20 11:24 Meclizine HCl (Meclizine Hcl 25 Mg Tab) 25 mg PO TID PRN PRN Reason: dizziness Stop: 12/02/20 11:33 Last Admin: 11/04/20 05:45 Dose: 25 mg Documented by: Metoclopramide HCl (Metoclopramide Hcl Inj 5 Mg/Ml 2 Ml Vial) 10 mg IV Q6H PRN PRN Reason: Nausea And Vomiting Stop: 12/02/20 11:24 Multivitamins (Multivitamin Tab) 1 tab PO QAM [facility] Stop: 12/03/20 08:59 Last Admin: 11/05/20 08:40 Dose: 1 tab Documented by: Multivitamins/Minerals (Calcium 600mg + Vit D 400 Iu Tab) 1 tab PO BID [facility] Stop: 12/02/20 20:59 Last Admin: 11/05/20 08:40 Dose: 1 tab Documented by: Naloxone HCl (Naloxone Hcl 0.4 Mg/1 Ml Vial/Carp) 0.1 mg IV Q5M PRN PRN Reason: Oversedation/Resp Depression Stop: 12/02/20 11:24 Ondansetron HCl (Ondansetron 8mg Od Tab) 8 mg PO Q8H PRN PRN Reason: Nausea Stop: 12/02/20 11:33 Last Admin: 11/03/20 16:46 Dose: 8 mg Documented by: Ondansetron HCl (Ondansetron Inj 2 Mg/Ml 2 Ml Vial) 4 mg IV Q6H PRN PRN Reason: Nausea And Vomiting Stop: 12/02/20 11:24 Last Admin: 11/04/20 19:26 Dose: 4 mg Documented by: Oxycodone HCl (Oxycodone Hcl Ir 5 Mg Tab (Immediate Release)) 5 - 10 mg PO Q4H PRN PRN Reason: Pain or Pre PT Stop: 11/16/20 11:24 Last Admin: 11/05/20 07:23 Dose: 5 mg Documented by: Sennosides (Senna 8.6 Mg Tab) 17.2 mg PO HS [facility] Stop: 12/02/20 20:59 Last Admin: 11/04/20 21:25 Dose: 17.2 mg Documented by: PG Care Time/CCT Total # of Minutes Spent Total Time Spent with Patient: Total time spent is greater than 50% in coordination of care (as documented) at patient's floor/unit and/or counseling patient: Coding Level of Care Code 43389 Subseq Hosp Care Lvl 3 Diagnoses SANJAY (acute kidney injury) N17.9 Acute blood loss as cause of postoperative anemia D62 Hyperkalemia E87.5 Osteoarthritis of left knee M17.12 Osteoarthritis type: primary COPD (chronic obstructive pulmonary disease) J44.9 COPD type: unspecified COPD Hypertension I10 Hypertension type: essential hypertension Paroxysmal atrial fibrillation I48.0 Chronic kidney disease, stage 4 (severe) N18.4 Iron deficiency anemia D50.9 Mitral regurgitation I34.0 (1) Osteoarthritis of left knee Osteoarthritis type: primary Qualified Code(s): M17.12 - Unilateral primary osteoarthritis, left knee (2) COPD (chronic obstructive pulmonary disease) COPD type: unspecified COPD Qualified Code(s): J44.9 - Chronic obstructive pulmonary disease, unspecified (3) Hypertension Hypertension type: essential hypertension Qualified Code(s): I10 - Essential (primary) hypertension
[2020-11-05] MEDS: FLUTICASONE/VILANTEROL 100/25MCG 14 PUFFS/INHALER INH SCH (20:22)
[2020-11-05] MEDS: ATORVASTATIN 10 MG TAB PO SCH (20:24)
[2020-11-05] MEDS: SENNA 8.6 MG TAB PO SCH (20:25)
[2020-11-06] MEDS: ACETAMINOPHEN 500 MG TAB PO SCH ×3 (05:01→20:27)
[2020-11-06 05:35] LABS: Hematocrit (blood only) 23.5 % (37-47); Hemoglobin 7.6 g/dL (12.0-16.0)
[2020-11-06 05:55] LABS: BUN Creatinine Ratio 24.1 (10-20); Calcium 7.9 mg/dl (8.5-10.1); Creatinine Clr Calc Pharmacy 17.8 ml/min; Est GFR (African American) 28.1; Est GFR (Non-African American) 24.2; Potassium 4.9 mmol/L (3.5-5.1)
[2020-11-06] MEDS: Ipratropium HFA Inhaler (Combivent Respimat P&T Subs) INH SCH ×2 (07:49→19:35)
[2020-11-06] MEDS: ALBUTEROL HFA 8 GM INHALER INH SCH ×2 (07:50→19:35)
[2020-11-06] MEDS ORDERED: SODIUM CHLORIDE 0.9% 250 ML IV PRN (08:12)
[2020-11-06] MEDS: APIXABAN 2.5 MG TAB PO SCH ×2 (09:19→20:27)
[2020-11-06] MEDS: MULTIVITAMIN TAB PO SCH (09:19)
[2020-11-06] MEDS: amLODIPine BESYLATE 5 MG TAB PO SCH (09:19)
[2020-11-06] MEDS: CALCIUM 600MG + VIT D 400 IU TAB PO SCH ×2 (09:20→20:27)
[2020-11-06] MEDS: ASCORBIC ACID 500 MG TAB PO SCH (09:21)
[2020-11-06] MEDS: DOCUSATE SODIUM 100 MG CAP PO SCH ×2 (09:21→20:28)
--- NOTE | 2020-11-06 09:39 | Hospitalist Progress Note ---
Date of Service November 06, 2020 Assessment & Plan (1) SANJAY (acute kidney injury): Creatinine down to 1.8 from 2.6 post op, making more urine today oral intake improving Baseline creatinine 1.7 so the SANJAY is essentially resolved stopped IV fluids yesterday BP low normal, giving one unit of PRBC today for Hb of 7.5 which should help renal function a little further medicine will sign off as Cr is back to normal work on getting patient to SNF rehab tomorrow or Saturday (2) Acute blood loss as cause of postoperative anemia: transfused two units on 3 Hb was up to 8.7 but then down to 8.0 and now it is 7.5, BP low normal will give one more unit of blood but should be fine after this no signs of further bleeding, check H/H tomorrow (3) Hyperkalemia: Potassium is 4.9 today check BMP tomorrow (4) Osteoarthritis of left knee: POD #4 total left knee arthroplasty Pain well controlled Ambulate per orthopedics Further management per orthopedics will give Miralax PRN, she had a BM yesterday she was able to participate with therapy today, no dizziness anticipate she could go to rehab Saturday (5) COPD (chronic obstructive pulmonary disease): No exacerbation on examination On Advair and Combivent Respimat at home Continue Brio Ellipta (ICS/LABA) while inpatient Change albuterol HFA (ANATOLIY) to as needed instead of scheduled No PFTs available Target SaO2 at 88 to 92% (6) Hypertension: Continue amlodipine Hemodynamically stable (7) Paroxysmal atrial fibrillation: Continue rhythm control strategy with amiodarone 200 mg p.o. daily. TSH normal in January 2020. 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 Preop labs with creatinine 1.67 at baseline. Avoid further NSAIDs (9) Iron deficiency anemia: POD #4 total left arthroplasty of knee EBL 20 mL Hemoglobin dropped to < 8 on 3/18, transfused 2 units, Hb was up to 8.7 but drifted down to 7.5 today transfuse one more unit today Not on ferrous sulfate at home Iron levels have been within normal limits since 2018-07-28 Follow CBC (10) Mitral regurgitation: Continue to monitor fluid status and blood pressure No chest pain or tightness No cardiac or respiratory complaints Admission and Anticipated Discharge Date Admission Date: November 04, 2020 Subjective patient doing better this morning, waiting on PRBC transfusion for Hb of 7.5 vitals stable, no fever, breathing well, no chest pain she has had a BM and she is making more urine Cr is down to 1.8 which is close to her baseline of 1.7, SANJAY essentially resolved knee pain is well controlled, it is a little stiff, she is doing exercises in bed Review of Systems Review of Systems: All systems reviewed & are unremarkable except as noted in Subjective Physical Exam Constitutional: WD/WN, vitals as above Neck: trachea midline, no thyromegaly Respiratory: normal respiratory effort, lungs clear to auscultation Cardiovascular: Rate/Rhythm: regular rate and regular rhythm Heart Sounds: normal S1, normal S2 and + murmur (systolic, over apex) Vessels: no JVD Extremities: normal capillary refill; no edema Gastrointestinal (Abdomen): normal bowel sounds, soft, nontender, no hepatosplenomegaly Musculoskeletal: Head/Neck/Chest: normocephalic, head atraumatic and neck supple Extremities: strength 5/5 throughout; no cyanosis, no clubbing and no petechiae Skin: no rashes, warm and dry Neurologic: patellar DTR's 2+ bilat, sensation intact and PERRL, EOMI, accommodation nl, no face palsy, no dysarthria Psychiatric: A+Ox3, euthymic affect Lymphatic: no cervical or axillary lymphadenopathy Results & Data Results & Data ([facility]) Vital Signs (Past 12 Hours) Vital Signs Temp Pulse Resp BP Pulse Ox 11/06/20 08:08 60 16 92 11/06/20 06:22 37.2 C 61 16 112/74 93 11/05/20 22:28 37.0 C 72 18 122/55 L 91 Laboratory Results Laboratory Results - last 24 hr 11/06/20 11/06/20 11/06/20 05:24 05:24 08:21 Hgb 7.6 L Hct 23.5 L Sodium 142 Potassium 4.9 Chloride 117 H Carbon Dioxide 21 Anion Gap 4.0 BUN 44 H Creatinine 1.84 H Est Cr Clr Drug Dosing 17.8 Est GFR ( Amer) 28.1 Est GFR (Non-Af Amer) 24.2 BUN/Creatinine Ratio 24.1 H Glucose 117 H Calcium 7.9 L Blood Type Pending Antibody Screen Pending Crossmatch See Detail Medications Administered Current Inpatient Medications Acetaminophen (Acetaminophen 500 Mg Tab) 1,000 mg PO Q8 LUÍS Stop: 12/02/20 13:59 Last Admin: 11/06/20 05:01 Dose: 1,000 mg Documented by: Albuterol (Albuterol Hfa 8 Gm Inhaler) 1 puffs INH BIDR LUÍS Stop: 12/03/20 18:59 Last Admin: 11/06/20 07:50 Dose: 1 puffs Documented by: Amiodarone HCl (Amiodarone 200 Mg Tab) 200 mg PO QDL LUÍS Stop: 12/03/20 11:29 Last Admin: 11/05/20 11:33 Dose: 200 mg Documented by: Amlodipine Besylate (Amlodipine Besylate 5 Mg Tab) 2.5 mg PO DAILY LUÍS Stop: 12/03/20 08:59 Last Admin: 11/06/20 09:19 Dose: 2.5 mg Documented by: Apixaban (Apixaban 2.5 Mg Tab) 2.5 mg PO BID LUÍS Stop: 12/03/20 08:59 Last Admin: 11/06/20 09:19 Dose: 2.5 mg Documented by: Ascorbic Acid (Ascorbic Acid 500 Mg Tab) 500 mg PO DAILY LUÍS Stop: 12/03/20 08:59 Last Admin: 11/06/20 09:21 Dose: 500 mg Documented by: Atorvastatin Calcium (Atorvastatin 10 Mg Tab) 10 mg PO QPM LUÍS Stop: 12/02/20 20:59 Last Admin: 11/05/20 20:24 Dose: 10 mg Documented by: Bisacodyl (Bisacodyl 10 Mg Supp) 10 mg MO DAILY PRN PRN Reason: Constipation Stop: 12/02/20 11:24 Diphenhydramine HCl (Diphenhydramine Capsule 25 Mg Cap) 25 mg PO Q8H PRN PRN Reason: Itching Stop: 12/02/20 11:24 Docusate Sodium (Docusate Sodium 100 Mg Cap) 100 mg PO BID LUÍS Stop: 12/02/20 20:59 Last Admin: 11/06/20 09:21 Dose: Not Given Documented by: Fluticasone/Vilanterol (Fluticasone/Vilanterol 100/25mcg 14 Puffs/Inhaler) 1 puffs INH QPM [facility]; Protocol Stop: 12/02/20 20:59 Last Admin: 11/05/20 20:22 Dose: 1 puffs Documented by: Hydromorphone HCl (Hydromorphone Inj 0.5 Mg/0.5 Ml Syr) 0.5 mg IV Q2H PRN PRN Reason: Pain or Pre PT Stop: 11/16/20 11:24 Sodium Chloride (Nss) 250 mls @ 15 mls/hr IV .[id number] PRN PRN Reason: For Transfusion Stop: 11/06/20 18:12 Ipratropium Hercules (Ipratropium Hfa Inhaler (Combivent Respimat P&T Subs)) 1 puffs INH BIDR [facility] Stop: 12/02/20 18:59 Last Admin: 11/06/20 07:49 Dose: 1 puffs Documented by: Magnesium Hydroxide (Magnesium Hydroxide Susp 30 Ml Udc) 30 ml PO Q6H PRN PRN Reason: Constipation Stop: 12/02/20 11:24 Meclizine HCl (Meclizine Hcl 25 Mg Tab) 25 mg PO TID PRN PRN Reason: dizziness Stop: 12/02/20 11:33 Last Admin: 11/04/20 05:45 Dose: 25 mg Documented by: Metoclopramide HCl (Metoclopramide Hcl Inj 5 Mg/Ml 2 Ml Vial) 10 mg IV Q6H PRN PRN Reason: Nausea And Vomiting Stop: 12/02/20 11:24 Multivitamins (Multivitamin Tab) 1 tab PO QAM [facility] Stop: 12/03/20 08:59 Last Admin: 11/06/20 09:19 Dose: 1 tab Documented by: Multivitamins/Minerals (Calcium 600mg + Vit D 400 Iu Tab) 1 tab PO BID [facility] Stop: 12/02/20 20:59 Last Admin: 11/06/20 09:20 Dose: 1 tab Documented by: Naloxone HCl (Naloxone Hcl 0.4 Mg/1 Ml Vial/Carp) 0.1 mg IV Q5M PRN PRN Reason: Oversedation/Resp Depression Stop: 12/02/20 11:24 Ondansetron HCl (Ondansetron 8mg Od Tab) 8 mg PO Q8H PRN PRN Reason: Nausea Stop: 12/02/20 11:33 Last Admin: 11/03/20 16:46 Dose: 8 mg Documented by: Ondansetron HCl (Ondansetron Inj 2 Mg/Ml 2 Ml Vial) 4 mg IV Q6H PRN PRN Reason: Nausea And Vomiting Stop: 12/02/20 11:24 Last Admin: 11/04/20 19:26 Dose: 4 mg Documented by: Oxycodone HCl (Oxycodone Hcl Ir 5 Mg Tab (Immediate Release)) 5 - 10 mg PO Q4H PRN PRN Reason: Pain or Pre PT Stop: 11/16/20 11:24 Last Admin: 11/05/20 21:54 Dose: 5 mg Documented by: Sennosides (Senna 8.6 Mg Tab) 17.2 mg PO HS LUÍS Stop: 12/02/20 20:59 Last Admin: 11/05/20 20:25 Dose: Not Given Documented by: PG Care Time/CCT Total # of Minutes Spent Total Time Spent with Patient: Total time spent is greater than 50% in coordination of care (as documented) at patient's floor/unit and/or counseling patient: Coding Level of Care Code 95820 Subseq Hosp Care Lvl 3 Diagnoses SANJAY (acute kidney injury) N17.9 Acute blood loss as cause of postoperative anemia D62 Hyperkalemia E87.5 Osteoarthritis of left knee M17.12 Osteoarthritis type: primary COPD (chronic obstructive pulmonary disease) J44.9 COPD type: unspecified COPD Hypertension I10 Hypertension type: essential hypertension Paroxysmal atrial fibrillation I48.0 Chronic kidney disease, stage 4 (severe) N18.4 Iron deficiency anemia D50.9 Mitral regurgitation I34.0 (1) Osteoarthritis of left knee Osteoarthritis type: primary Qualified Code(s): M17.12 - Unilateral primary osteoarthritis, left knee (2) COPD (chronic obstructive pulmonary disease) COPD type: unspecified COPD Qualified Code(s): J44.9 - Chronic obstructive pulmonary disease, unspecified (3) Hypertension Hypertension type: essential hypertension Qualified Code(s): I10 - Essential (primary) hypertension
--- NOTE | 2020-11-06 10:08 | Orthopedic Progress Note ---
Date of Service November 06, 2020 Assessment & Plan (1) Status post left knee replacement: Admission and Anticipated Discharge Date Admission Date: 85 yo female stable POD #4 s/p left TKA, acute on chronic anemia, transfused 1 more unit PRBCs per medicine 1. Med management 2. DVT prophylaxis- Eliquis, SCDs 3. PT/OT- has been limited due to pt dizziness 4. 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 Subjective Pt resting in bed, pain controlled, denies complaints Physical Exam Physical Exam: Toes mobile, N/V/I, Silverlon dressing in place Results & Data ([facility]) Vital Signs (Past 12 Hours) Vital Signs Temp Pulse Resp BP Pulse Ox 11/06/20 08:08 60 16 92 11/06/20 06:22 37.2 C 61 16 112/74 93 11/05/20 22:28 37.0 C 72 18 122/55 L 91 Laboratory Results 11/06/20 11/06/20 11/06/20 Range/Units 08:21 05:24 05:24 Hgb 7.6 L (12.0-16.0) g/dL Hct 23.5 L (37-47) % Sodium 142 (136-145) mmol/L Potassium 4.9 (3.5-5.1) mmol/L Chloride 117 H (98-107) mmol/L Carbon Dioxide 21 (21-32) mmol/L Anion Gap 4.0 (3-11) BUN 44 H (7-18) mg/dl Creatinine 1.84 H (0.6-1.2) mg/dl Est Cr Clr Drug Dosing 17.8 ml/min Est GFR ( Amer) 28.1 Est GFR (Non-Af Amer) 24.2 BUN/Creatinine Ratio 24.1 H (10-20) Glucose 117 H (70-99) mg/dl Calcium 7.9 L (8.5-10.1) mg/dl Blood Type Pending Antibody Screen Pending Crossmatch See Detail
--- NOTE | 2020-11-06 10:11 | Orthopedic Progress Note ---
Date of Service November 06, 2020 Assessment & Plan (1) Status post left knee replacement: Postoperative day 4 status post left total knee arthroplasty. Her discharge and rehab placement has really been held up by her lack of participation with therapy, which she attributes to dizziness. This may be partly due to her anemia, but she does have some problems with chronic dizziness. She does have acute on chronic anemia. Medicine is transfusing additional unit of the red blood cells today. Hopefully this will help. I strongly encouraged her to participate with therapy. traffic coordinator is planning to reapply for rehab placement tomorrow if she can better participate with therapy. Admission and Anticipated Discharge Date Admission Date: November 04, 2020 Subjective Patient resting comfortably in bed. No acute distress. She has been having problems with participation in therapy due to dizziness. She normally takes meclizine; this is ordered for her. Her rehab placement was denied so far due to her lack of participation with therapy. Physical Exam Physical Exam: Left knee dressings clean, dry, intact. Good range of motion of the knee. Motor and sensory function is intact distally. Results & Data ([facility]) Vital Signs (Past 12 Hours) Vital Signs Temp Pulse Resp BP Pulse Ox 11/06/20 08:08 60 16 92 11/06/20 06:22 37.2 C 61 16 112/74 93 11/05/20 22:28 37.0 C 72 18 122/55 L 91 Laboratory Results Hgb 8.6-->7.6
[2020-11-06] MEDS: AMIODARONE 200 MG TAB PO SCH (12:33)
[2020-11-06] MEDS: oxyCODONE HCL IR 5 MG TAB (IMMEDIATE RELEASE) PO PRN ×2 (14:57→19:39)
[2020-11-06] MEDS: FLUTICASONE/VILANTEROL 100/25MCG 14 PUFFS/INHALER INH SCH (20:26)
[2020-11-06] MEDS: SENNA 8.6 MG TAB PO SCH (20:28)
[2020-11-06] MEDS: ATORVASTATIN 10 MG TAB PO SCH (20:28)
[2020-11-07] MEDS: ACETAMINOPHEN 500 MG TAB PO SCH ×3 (05:04→21:19)
[2020-11-07] MEDS: ALBUTEROL HFA 8 GM INHALER INH SCH ×2 (07:10→20:07)
[2020-11-07] MEDS: Ipratropium HFA Inhaler (Combivent Respimat P&T Subs) INH SCH ×2 (07:11→20:08)
[2020-11-07] MEDS: APIXABAN 2.5 MG TAB PO SCH ×2 (08:53→21:18)
[2020-11-07] MEDS: oxyCODONE HCL IR 5 MG TAB (IMMEDIATE RELEASE) PO PRN (08:53)
[2020-11-07] MEDS: MULTIVITAMIN TAB PO SCH (08:54)
[2020-11-07] MEDS: ASCORBIC ACID 500 MG TAB PO SCH (08:54)
[2020-11-07] MEDS: MECLIZINE HCL 25 MG TAB PO PRN (08:55)
[2020-11-07] MEDS: DOCUSATE SODIUM 100 MG CAP PO SCH ×2 (08:55→21:21)
[2020-11-07] MEDS: amLODIPine BESYLATE 5 MG TAB PO SCH (08:56)
[2020-11-07] MEDS: CALCIUM 600MG + VIT D 400 IU TAB PO SCH ×2 (08:56→21:20)
[2020-11-07] MEDS: ONDANSETRON INJ 2 MG/ML 2 ML VIAL IV PRN (09:04)
[2020-11-07 10:11] LABS: Hematocrit (blood only) 29.4 % (37-47); Hemoglobin 9.6 g/dL (12.0-16.0); Mean Corpuscular Hgb Conc 32.7 g/dL (32-36); Mean Corpuscular Volume 94.8 fL (80-100); Mean Platelet Volume 9.5 fL (7.4-10.4); Platelet Count 186 K/uL (130-400); RDW Coefficient of Variation 16.2 % (11.5-14.5); RDW Standard Deviation 56.7 fL (36.4-46.3); White Blood Count 7.91 K/uL (4.8-10.8)
[2020-11-07 10:36] LABS: BUN Creatinine Ratio 22.6 (10-20); Calcium 8.3 mg/dl (8.5-10.1); Creatinine Clr Calc Pharmacy 19.5 ml/min; Est GFR (African American) 31.3; Potassium 4.7 mmol/L (3.5-5.1)
[2020-11-07] MEDS: AMIODARONE 200 MG TAB PO SCH (12:34)
[2020-11-07] MEDS: ATORVASTATIN 10 MG TAB PO SCH (21:18)
[2020-11-07] MEDS: FLUTICASONE/VILANTEROL 100/25MCG 14 PUFFS/INHALER INH SCH (21:18)
[2020-11-07] MEDS: SENNA 8.6 MG TAB PO SCH (21:20)
[2020-11-08] MEDS: ACETAMINOPHEN 500 MG TAB PO SCH ×2 (05:06→14:59)
[2020-11-08] MEDS: oxyCODONE HCL IR 5 MG TAB (IMMEDIATE RELEASE) PO PRN (08:30)
[2020-11-08] MEDS: CALCIUM 600MG + VIT D 400 IU TAB PO SCH (08:30)
[2020-11-08] MEDS: DOCUSATE SODIUM 100 MG CAP PO SCH (08:31)
[2020-11-08] MEDS: Ipratropium HFA Inhaler (Combivent Respimat P&T Subs) INH SCH (08:31)
[2020-11-08] MEDS: APIXABAN 2.5 MG TAB PO SCH (08:31)
[2020-11-08] MEDS: ALBUTEROL HFA 8 GM INHALER INH SCH (08:31)
[2020-11-08] MEDS: MULTIVITAMIN TAB PO SCH (08:31)
[2020-11-08] MEDS: amLODIPine BESYLATE 5 MG TAB PO SCH (08:32)
[2020-11-08] MEDS: ASCORBIC ACID 500 MG TAB PO SCH (08:32)
[2020-11-08] MEDS: AMIODARONE 200 MG TAB PO SCH (12:39)
--- NOTE | 2020-11-08 15:17 | Orthopedic Progress Note ---
Date of Service November 08, 2020 Assessment & Plan (1) Localized osteoarthritis of left knee: Postop day 6 status post left TKA Have spoken to the physical therapy department. They state that the patient is doing well with her physical therapy and she continues to progress daily. Continued on DVT prophylaxis with her apixaban, SCDs and BERRY hose. Pain management as written. DC planning-her insurance is once again denied her skillednursing facility. Patient has progressed with physical therapy and after speaking with PT department, they feel she is stable for discharge to home with home health services. Plan for discharge to home today. Admission and Anticipated Discharge Date Admission Date: November 04, 2020 Subjective Postop day 6 Patient sitting at the edge of the bed. She is asking to go home. She has no complaints at this time. Pain is controlled. She denies shortness of breath, chest pain, lightheadedness. Her daughter is with her. Physical Exam Physical Exam: Silverlon dressing is intact. She has some mild drainage noted in the dressing window. There is no erythema or blistering around the edges of the Silverlon. Calves are soft and nontender. Neurovascular intact. Toes are mobile. Results & Data ([facility]) Vital Signs (Past 12 Hours) Vital Signs Temp Pulse Resp BP Pulse Ox 11/08/20 14:50 36.6 C 63 16 151/80 H 92 11/08/20 08:07 93 11/08/20 07:20 36.9 C 64 16 163/78 H 92 11/08/20 05:04 92 11/08/20 05:02 84 L
--- NOTE | 2020-11-09 09:01 | Discharge Summary ---
Date of Service November 09, 2020 Admission HPI Per Admitting Provider This is a patient with chronic left knee pain and treated for left knee DJD for a long period of time. She has since failed all conservative management and is now being set up for surgical tx. She is now being set up for left TKA. Principal Diagnosis left knee osteoarthritis Discharge Exam Constitutional WD/WN, vitals as above no acute distress ENMT external ear and nose normal, oropharynx normal Neck trachea midline, no thyromegaly Respiratory normal respiratory effort, lungs clear to auscultation Cardiovascular Rate/Rhythm: + irregularly irregular Gastrointestinal (Abdomen) normal bowel sounds, soft, nontender, no hepatosplenomegaly Musculoskeletal Knee: + surgical incision (left knee: Dressing C/D/I. LYLY in place. Silverlon in place.); knee normal to inspection, no skin erythema, no ecchymosis, no surgical drain present (hemovac removed) and no crepitation with knee ROM Skin no rashes, warm and dry Neurologic normal touch/pain/proprioception Psychiatric A+Ox3, euthymic affect Speech: normal rate/rhythm/volume of speech Lymphatic no cervical or axillary lymphadenopathy Discharge Data Allergies Allergy/AdvReac Type Severity Reaction Status Date / Time lisinopril Allergy Intermediate FACIAL Verified 03/ 06:02 SWELLING AND RT UPPER THIGH PAIN Penicillins Allergy Intermediate HIVES Verified 11/02/ 06:02 Consultations 03/ 11:25 Consult Case Management - Discharge Planning Routine Consult Hospitalist Routine Procedures Performed Operation Date: 0317/ 07:15 Actual Procedures p Left Total Knee Arthroplasty(Left) - Herve Tapia DO Ordered Studies 03/ 05:00 US - OR guided needle placemen Routine Hospital Course (1) Localized osteoarthritis of left knee: The patient was admitted and underwent the noted procedure. On POD #1, her pain was controlled but her Hgb had dropped significantly from post op and her hemovac drainage was fairly high. Later on POD #1, her Hgb was rechecked and she was transfused 1 unit of PRBC. POD #2, her pain was increased and her Creatinine was still elevated. She had difficulties participating in PT over the next few days so her plan of going to a SNF was denied by her insurance. By POD #5, her creatinine had normalized and her Hgb improved after another transfusion of 1 unit of PRBC and she was able to participate in PT since her pain was improved. On POD #6, she was dischaged home with home health after PT felt she was safe to return home. Postop day 6 status post left TKA Have spoken to the physical therapy department. They state that the patient is doing well with her physical therapy and she continues to progress daily. Continued on DVT prophylaxis with her apixaban, SCDs and BERRY hose. Pain management as written. DC planning-her insurance is once again denied her skillednursing facility. Patient has progressed with physical therapy and after speaking with PT department, they feel she is stable for discharge to home with home health services. Plan for discharge to home today. Total Time Total Time Spent Total Time Spent (In Minutes): 120 Total Time Includes: Examination of the Patient, Discharge Planning, Medication Reconciliation and Communication With Other Providers Discharge Plan Discharge Items Patient Disposition: Home - Home Health Services Reason For Visit: Unilateral Primary Osteoarthritis, Left Knee Discharge Diagnosis: Left knee osteoarthritis Activity: Per Instructions section Weightbearing: Left weightbearing Weightbearing Comment: as tolerated with walker Non-emergency contact: Surgeon Call non-emergency contact if: your pain is not controlled, your pain is worsening and your temperature is above 101 Follow-up/Referrals: Pardeep Lin MD [Primary Care Provider] - Diet: Regular Addtl Attending Provider Instructions: ACTIVITY RECOMMENDATIONS: SELF CARE INSTRUCTIONS AFTER TOTAL KNEE REPLACEMENT A. You may need to continue a physical therapy program after discharge from the hospital. There are several options available to you. Your doctor will assist you in selecting the best one for you. 1. An out-patient facility 2 to 3 times a week for therapy or home therapy. 2. Continue working on all exercises taught to you in the hospital. Your goals should be to increase bending of your knee to 90 degrees and beyond and to fully straighten your knee. B. You may progress at your own pace from walking with a walker or crutches to a cane; then to no assistive devices. C. Make walking a part of your daily routine. Be up as much as comfortable with rest periods throughout the day. Rest with leg elevation is very important. Use the ice wrap frequently for the first 3-4 weeks. D. There are no restrictions on activities. You may ride in a car, shop, participate in pulmonary nurse practitioner and all social activities. E. Wear the long elastic stockings (BERRY hose) 20 hours a day for one month after surgery. They can be removed several times a day for laundering and for a bath. F. Silverlon: You have a Silverlon dressing on the right knee incision. It will remain in place for 7 days from the day of your surgery. After 7 days, you may remove the dressing, just as you would remove a bandaid. You may shower with the Silverlon dressing in place. However, if you notice any water within the dressing, the dressing should be removed. You may cover the incision with a dry dressing once the silverlon is removed if there is any drainage. SPECIAL CARE INSTRUCTIONS: VERY IMPORTANT TO READ AND REVIEW A. Take Eliquis (blood thinning medications) as directed by your doctor. If on Coumadin, have a pro-time (blood test) drawn according to your doctor's instructions. This will tell the doctor how well the Coumadin is thinning your blood. B. There are a few signs you need to watch for after you are home. Call [facility] if you notice any of the followin. Increased severe knee pain. Some pain is expected especially when you exercise. 2. Increased swelling in your leg or knee; pain or swelling of the calf muscle in either lower leg. 3. Any fluid drainage from the incision. 4. Shortness of breath or chest pain. C. Please call [facility] at if you have any concerns or questions about your operation or recovery. The doctor or his nurse will return your call promptly. D. You must take antibiotics before dental work, bladder, bowel or other surgery. Your doctor will provide you with a permanent care to carry describing this precaution. * CALL IF INCREASED PAIN, REDNESS, DRAINAGE OR FEVER GREATER THAT 101 F. * WEAR BERRY HOSE 20 HOURS PER DAY FOR 4 WEEKS. FOLLOW UP VISIT: If appointment is not already scheduled: Please call [facility] to make a follow-up appointment for 2 weeks after your surgery to have sri removed at . Pending Studies at Discharge: No Stand-Alone Forms: My [employer], Opioid Pain Management, Smoking Cessation Medications and DC Order Prescriptions: New acetaminophen 500 mg Tablet 1,000 mg PO Q8 14 Days Qty: 84 RF: 0 polyethylene glycol 3350 [Miralax] 17 gram powder in packet 17 g PO DAILY PRN (Reason: constipation) Qty: 5 RF: 0 oxycodone 5 mg Tablet 5 mg PO Q4H MDD 6 PRN (Reason: pain) Qty: 30 RF: 0 Continued Eliquis 2.5 mg tablet 2.5 mg PO BID Qty: 180 RF: 3 Calcium 600 + D(3) 600 mg calcium- 200 unit capsule 1 cap PO BID Qty: 180 RF: 3 atorvastatin 10 mg tablet 10 mg PO QPM Qty: 90 RF: 3 fluticasone propion-salmeterol [Advair Diskus] 250-50 mcg/dose blister with device 1 puffs INH BID Qty: 180 RF: 3 amiodarone 200 mg tablet 200 mg PO DAILY Qty: 90 RF: 3 meclizine 25 mg tablet 25 mg PO TID PRN (Reason: dizziness) Qty: 90 RF: 0 amlodipine 2.5 mg tablet 2.5 mg PO DAILY Qty: 30 RF: 2 ondansetron HCl 8 mg Tablet 8 mg PO Q8H PRN (Reason: Nausea) RF: 0 ascorbic acid (vitamin C) [Vitamin C] 500 mg Tablet 500 mg PO DAILY RF: 0 Combivent Respimat 20-100 mcg/actuation Mist 1 puff INHALATION BID RF: 0 Discharge Orders: Discharge Order (Routine); Ordered 11/08/20 Ordered By: Walter Santiago Admission Data Admit Date/Time: 11/04/20 14:37 Attending Provider: Herve Tapia Admit Provider: Herve Tapia Primary Care Provider: Pardeep Lin Other Providers: Fatimah Fan ; Jairo Lomas ; Teodoro Nascimento ; Janet Marroquin ; Kamlesh Yarbrough ; Sonny Lynn ; Jorge Whitlock ; Jessica Paredes ; Kathy Garber ; Conor Howard ; Mary Bear ; Kym Moreno ; Faisal Daley ; Robert Jackson ; Bita Smalls ; Bry Guy ; Boris Meyers ; Jose Guadalupe Conroy ; Quentin Orta ; Jairo Chavez ; Tera Perkins ; Anne-Marie Garrido ; Abbe Moreno ; iVshnu Broderick ; [facility] Other Interventions: Discharge Summary Assessment (RN) Last Done: 11/08/20 15:40
== END 2020-11-08 16:29 | disposition home health service (06) | DRG 470 ==
LOC: ASU 05:18 → 3E 05:18